=== PATIENT | male | born 1960 | race Caucasian/White ===

== ENCOUNTER 2018-04-03 11:41 | Outpatient (CLI) | payer BC, SELFPAY ==
[2018-04-03 12:05] LABS: Abs Immature Grans 0.01 k/cumm (0.0-0.09); Absolute Basophil Count 0.02 k/cumm (0.0-0.2); Absolute Eosinophil Count 0.26 k/cumm (0.0-0.7); Absolute Monocyte Count 0.53 k/cumm (0.11-0.7); Absolute Neutrophil Count 4.01 k/cumm (1.2-6.7); Basophils % 0.3; Eosinophils % 3.7; HCT 44.6 % (40.0-50.0); Immature Grans % 0.1; Lymphocytes % 31.3; Mean Corp. HGB Concentration 33.6 g/dL (32.0-36.0); Mean Corpuscular Hemoglobin 30.5 pg (27.0-33.0); Mean Corpuscular Volume 90.8 fL (80-95); Mean Platelet Volume 9.9 fL (8.0-11.0); Monocytes % 7.5; Neutrophils % 57.1; Platelet Count 249 x1000/uL (130-400); RBC 4.91 m/cumm (4.50-6.00); RBC Distribution Width 13.3 % (11.8-14.1); White Blood Cell Count 7.03 k/cumm (4.4-10.8)
[2018-04-03 13:12] LABS: ALT 20 U/L (12-78); AST 11 U/L (15-37); Albumin 3.9 g/dL (3.4-5.0); Alkaline Phosphatase 75 U/L (46-116); Anion Gap 9.3 mmol/L (3-11); BUN 22 mg/dL (7-18); Bilirubin, Total 0.6 mg/dL (0.2-1.0); CO2 22.7 mmol/L (21.0-32.0); CREATININE 1.17 mg/dL (0.70-1.30); Calcium 8.5 mg/dL (8.5-10.1); Chloride 106 mmol/L (98-107); Glucose 97 mg/dL (70-100); Potassium 4.4 mmol/L (3.5-5.1); Sodium 138 mmol/L (136-145); Total Protein 7.1 g/dL (6.4-8.2)
[2018-04-04 09:18] LABS: CEA 0.9 ng/ml
== END 2018-04-03 12:01 ==
PROVIDERS: PCP General Practice; Visit Provider Internal Medicine
DX: Z85.038 Personal history of other malignant neoplasm of large intestine (principal)
CPT/HCPCS: 36415; 80053; 82378; 85025

== ENCOUNTER 2019-04-24 13:43 | Outpatient (CLI) | payer BC, SELFPAY ==
[2019-04-24 14:03] LABS: Abs Immature Grans 0.03 k/cumm (0.0-0.09); HCT 44.6 % (40.0-50.0); Mean Corp. HGB Concentration 33.6 g/dL (32.0-36.0); Mean Corpuscular Volume 89.2 fL (80-95); Mean Platelet Volume 9.6 fL (8.0-11.0); Platelet Count 303 x1000/uL (130-400); RBC Distribution Width 13.2 % (11.8-14.1); White Blood Cell Count 9.27 k/cumm (4.4-10.8)
[2019-04-24 14:44] LABS: Absolute Lymphocyte Count 2.69 k/cumm (1.2-3.4); Absolute Monocyte Count 0.46 k/cumm (0.11-0.7); Absolute Neutrophil Count 5.75 k/cumm (1.2-6.7); Atypical Lymphocytes % 5
[2019-04-24 14:45] LABS: Absolute Eosinophil Count 0.37 k/cumm (0.0-0.7); Diff Comment Manual Differential; RBC Morphology Normal
[2019-04-24 15:29] LABS: ALT 22 U/L (16-63); AST 11 U/L (15-37); Alkaline Phosphatase 89 U/L (46-116); Anion Gap 9.5 mmol/L (3-11); BUN 17 mg/dL (7-18); Bilirubin, Total 0.4 mg/dL (0.2-1.0); CO2 24.5 mmol/L (21.0-32.0); CREATININE 1.16 mg/dL (0.70-1.30); Calcium 8.9 mg/dL (8.5-10.1); Chloride 104 mmol/L (98-107); Glucose 110 mg/dL (74-106); Potassium 4.3 mmol/L (3.5-5.1); Sodium 138 mmol/L (136-145); Total Protein 6.9 g/dL (6.4-8.2)
[2019-04-27 11:10] LABS: CEA 0.7 ng/mL (See Note)
== END 2019-04-24 14:03 ==
PROVIDERS: PCP General Practice; Visit Provider Nurse Practitioner Family
DX: C18.9 Malignant neoplasm of colon, unspecified (principal)
CPT/HCPCS: 36415; 80053; 82378; 85025

== ENCOUNTER 2019-07-20 08:36 | Day surgery (SDC) | payer BC, SELFPAY ==
--- NOTE | 2019-07-20 07:03 | W.COLOREPORT ---
Date of service: 07/20/19 Time of Service: : Colonoscopy Report Date of procedure: 07/20/19 Pre-op diagnosis general: Hx of colon Cancer and polyps Post-op diagnosis procedure note: same (polyps) Procedure: Colonoscopy with polypectomy Surgeon: Jenna Blanco Anesthesia proc note operative: other (General/ ASA 2/ Cande Ladd CRNA) Estimated blood loss (mL): 3 Pathology: other (ascending pllyp, sigmoid polyps x3, rectal polyps x2) Complications: None Disposition: same day Indications: 58 y/o male with history of colon cancer-adenocarcinoma (s/p colectomy in 2010) presents for colonoscopy screening pre-op. His last screening was in 2015, which was remarkable for a single hyperplastic polyp. He denies a family history of colon cancer. He denies any changes in bowel habits including bloody or black tarry stools, abdominal pain, diarrhea or constipation. He denies constitutional symptoms. Risks, benefits and complications have been reviewed. Complications include but are not limited to bleeding, pain, perforation, missed small lesion/polyp, sore throat, aspiration and adverse reaction to the medications. Questions were entertained and answered to their satisfaction and they wished to proceed. No guarantees were given or implied. Prep: Miralax/Dulcolax Procedure Start Time: : Procedure End Time: :40 Retraction Time: 15 minutes Findings: small sessile polyps patent anastamosis without stricture or polyps Procedure Description: After informed consent was obtained the patient was taken to the procedure room and placed in a left decubitous position. Monitors were applied and a time out was done. The patients name, date of , procedure, allergies to medications and metal in their body was reviewed. The patient was then sedated. Once sedated and comfortable a rectal exam was done. External exam was normal. Internal exam revealed a normal sphincter tone and no palpable masses. The prostate felt normal. The scope was then introduced and retro-flexed. No internal hemorrhoids masses or polyps were identified on retro-flexion. The scope was then advanced to the cecum without difficulty. The ileocecal valve and appendiceal orifice were identified. The prep was good. The scope was then slowly retracted over 15 minutes back into the rectum. Polyps were removed with cold forceps in the ascending colon, sigmoid colon and rectal polyps. The anastamosis was identified. It was wide open. There was no scqr tissue and no polyps or inflammation. The scope was removed and the patient was woken up and taken back to Same day surgery in stable condition. The patient tolerated the procedure well and there were no immediate complications. Follow up: The patient should follow up in 3-5 years unless they develop changes in bowel habits or other new gastrointestinal complaints.
--- NOTE | 2019-07-20 07:09 | W.PM.DSUDISC ---
Discharge Plan Disposition Patient Disposition: HOME Condition: Good Discharge Details Reason For Visit: Hx of colon Cancer Attending Provider: Jenna Blanco Primary Care Provider: None,None Home Meds and New Rx's Prescriptions: Discontinued polyethylene glycol 3350 17 gram/dose powder 238 g PO ONCE Qty: 238 RF: 0 bisacodyl [Dulcolax (bisacodyl)] 5 mg tablet,delayed release (DR/EC) 5 mg PO ONCE Qty: 4 RF: 0 Discharge Instructions Additional Instructions: Findings: 5 small polyps Follow up: 3-5 years Please call if you develop: fevers >101.5 Nausea or Vomiting Abdominal pain that is not transient DAY SURGERY UNIT POST ENDOSCOPY INSTRUCTIONS 1. Because there will be medication in your system for the next 24 hours, you may feel a little sleepy. Your coordination will be affected. Therefore: a. Do not drive or operate dangerous equipment for 24 hours. b. Do not drink alcohol beverages for 24 hours (not even beer). c. Plan to go home and rest for the day. 2. Generally there are no restrictions on your activity after a day or so has gone by, but you may feel a bit fatigued for a few days. 3 After you arrive home you may have a light meal and return to a normal diet as you can tolerate it without feeling sick to your stomach. 4. After surgery, you may feel pain or discomfort. This should be only transient, but if it persists please contact your doctor. 5. If there are any questions regarding the findings of your procedure, please feel free to contact your doctor. 6. If you are unable to contact your doctor with a problem, contact the hospital at [phone]. 7. Continue all your regular medications unless directed otherwise. I understand the above instructions and have no questions. Signature of Patient or Responsible Adult Escort Date/Time Name of Responsible Adult Escort Signature of Nurse Date/Time Activity:: Activity as Tolerated Diet:: As Tolerated Discharge Orders Discharge Orders: Discharge Order (Routine); Ordered 07/20/19 Ordered By: Jenna Blanco
[2019-07-20 08:52] VITALS: BP 128/79; PULSE 102; RESP 16; TEMP 37.1; O2SAT 96
[2019-07-20] MEDS: Lactated Ringers 1,000 ML 80 ML IV (09:13)
--- NOTE | 2019-07-20 09:22 | BOWEL_PTH ---
PATIENT: Alberto Yanes LOC: [facility] U#:[id number] AGE/SX: 58/M ROOM: RE07/20/[address]: Jenna Blanco MD : [id number] BED: DIS: 07/20/2019 SPEC #: [id number] RECD: 07/20/19 12:31 STATUS: ALHAJI REQ #: [id number] [place]: 07/20/19 09:[address]: Jenna Blanco DEPT: Surgical Specimen RECD BY: Shonna Kumar ENTERED: 07/20/19 12:33 SP TYPE: Bowel OTHR DR: None Tissues: 1 - BIOPSY BOWEL 2 - BIOPSY BOWEL 3 - BIOPSY BOWEL Procedures: GROSS AND MICRO LEVEL 4 Comments: [id number]
[2019-07-20 10:20] VITALS: BP 93/65; PULSE 66; RESP 14; TEMP 36.5; O2SAT 95
== END 2019-07-20 10:30 | disposition home or self-care (01) ==
LOC: SUR 08:36
PROVIDERS: Visit Provider Surgery
PROC: 0DJD8ZZ Inspection of Lower Intestinal Tract, Via Natural or Artificial Opening Endoscopic (ICD-10-PCS; CPT 45378; principal; 2019-07-20 10:30)
DX: Z12.11 Encounter for screening for malignant neoplasm of colon (principal); D12.2 Benign neoplasm of ascending colon; K63.5 Polyp of colon; K62.1 Rectal polyp; Z85.038 Personal history of other malignant neoplasm of large intestine; Z90.49 Acquired absence of other specified parts of digestive tract; Z87.19 Personal history of other diseases of the digestive system
CPT/HCPCS: 45380; 88305; J2001

== ENCOUNTER 2020-03-09 13:54 | Emergency (ER) | payer BC, SELFPAY ==
[2020-03-09 13:58] VITALS: BP 152/93; PULSE 78; RESP 16; TEMP 36.6; O2SAT 95
--- NOTE | 2020-03-09 14:15 | DI.CT_ITS ---
EXAM: CT ABDOMEN PELVIS W CLINICAL HISTORY: LLQ pain TECHNIQUE: Imaging Protocol: Axial computed tomography images with coronal and sagittal reformatted images were created and reviewed CONTRAST MATERIAL: Intravenous: Omnipaque 350 Contrast volume:100 mL Oral: No COMPARISON: CT CHEST ABD PELVIS WITH CONTRAST from 03/01/2016 FINDINGS: ABDOMEN: Lung Bases: Normal where visualized. Liver: Normal density. No measurable mass. Stable hepatic cysts. Portal, Superior Mesenteric, and Splenic Veins: Unremarkable. Gallbladder and Biliary Tract: Status post cholecystectomy. No biliary ductal dilatation. Pancreas: Normal density, no abnormal calcifications or inflammatory process. Spleen: Normal. Adrenals: No masses seen. Kidneys: Normal size, contour and axis. Stable nonobstructing left nephrolithiasis. No masses seen. Abdominal Aorta: Abdominal portion non-dilated. Mild atherosclerosis. Bowel: No obstruction or bowel wall thickening. No evidence of acute appendicitis. Anastomotic sutur es in the sigmoid colon. Peritoneal Cavity: No ascites, collection or mesenteric inflammatory response. Lymph Nodes: Within normal limits. Bones: Unremarkable. Soft Tissues: Small fat containing umbilical hernia. Small fat containing paraumbilical hernia. PELVIS: Bladder: Incompletely distended. No gross abnormalities. Reproductive Organs: Mildly enlarged prostate gland. Lymph Nodes: Within normal limits. Bones: Within normal limits. IMPRESSION: No acute abdominal or pelvic process. Findings were discussed with the emergency department on the date of the examination. RADIATION DOSE DELIVERED: 922.48mGy.cm Total DLP DATA REPOSITORY: All CT scans at this facility are submitted to the National Radiology Data Registry (NRDR) Dose Index Registry (DIR) with the [employer] (ACR). RADIATION OPTIMIZATION: All CT scans at this facility use at least one of these dose optimization te chniques: automated exposure control; mA and/or kV adjustment per patient size (includes targeted exa ms where dose is matched to clinical indication); or iterative reconstruction.
[2020-03-09 14:34] LABS: Abs Immature Grans 0.03 10^3/uL (0.0-0.06); Absolute Basophil Count 0.04 10^3/uL (0.0-0.2); Absolute Eosinophil Count 0.29 10^3/uL (0.0-0.7); Absolute Lymphocyte Count 2.79 10^3/uL (1.2-3.4); Absolute Monocyte Count 0.56 10^3/uL (0.1-0.8); Absolute Neutrophil Count 4.17 10^3/uL (1.2-6.7); Basophils % 0.5; Eosinophils % 3.7; HGB 15.2 g/dL (13.5-17.5); Immature Grans % 0.4; Lymphocytes % 35.4; MCH 29.6 pg (27.0-33.0); MCV 89.7 fL (80-95); MPV 9.8 fL (8.0-11.0); Monocytes % 7.1; Neutrophils % 52.9; Nucleated RBC 0 %; Platelet Count 278 10^3/uL (130-400); RBC 5.13 10^6/uL (4.36-5.78); RDW 12.6 % (11.8-14.1); RDW-SD 41.4 fL; WBC 7.88 10^3/uL (4.4-10.8)
--- NOTE | 2020-03-09 14:37 | ED.GENADUL_ITS ---
Discharge Plan Disposition Patient Disposition: HOME Condition: Stable Discharge Details Clinical Impression: Kidney stone on left side Primary Care Provider: None,None ED Provider: Fatmata Castro Home Meds and New Rx's Prescriptions: New ketorolac 10 mg tablet 10 mg PO TID PRN (Reason: pain) 5 Days Qty: 14 RF: 0 tamsulosin [Flomax] 0.4 mg capsule 0.4 mg PO QHS 7 Days Qty: 7 RF: 0 Discharge Instructions Instructions: Kidney Stones (ED) Additional Instructions: Follow up with primary care provider in 3-5 days. Return to ED sooner if any worsening or concerns. Increase oral fluids. Take medications as directed. Follow-up with urology in 1 to 2 weeks if no improvement. Strain all urine. Stand Alone Forms: Work Release Referrals: Luis Armando Wheat MD [ [facility] STAFF PHYSICIAN] - Discharge Data Discharge Date/Time-TO BE ENTERED AT DEPARTURE: 03/09/20 17:22 Medical Decision Making <FELIZ Dickey - Last Filed: 03/10/20 08:04> 59-year-old gentleman with history of colon cancer, status post colectomy, presenting for ongoing abdominal pain, left lower quadrant. Has been present for 2 years but worse over the past 2 weeks. Clinically he appears well, nontoxic. Abdomen is soft, nontender, normal bowel sounds. Denies any pain in his back, flank, hematuria or dysuria. Discussed our options at this time. Patient would prefer to have the blood work, urinalysis and CT imaging at this time as he does not have a primary care provider and feels as though his pain is worse and different than usual. Differential includes not excluded to colon mass, obstruction, diverticulitis, UTI, pyelonephritis, hydronephrosis, renal stone, etc. Laboratory values reveal 5-10 red blood cells in his urine otherwise his labs are unremarkable. We once again discussed our options. Clinically he does not present as a kidney stone although this cannot be excluded given his hematuria. We discussed pros and cons of obtaining CT imaging with and without contrast, he is comfortable obtaining CT imaging with contrast understanding that a very small stone can be missed with contrast. In the meantime he will be given 30 IV Toradol. At time of signout, CT imaging pending. I have placed the patient on the care management list to help expedite outpatient care. Medical Records Medical records reviewed: Yes I reviewed the patient's medical records. <Fatmata Castro - Last Filed: 03/09/20 16:59> Care signed out to me from outgoing provider FELIZ Banerjee please see his original HPI and physical exam. Pending CT exam results are noted below. EXAM: CT ABDOMEN PELVIS W CLINICAL HISTORY: LLQ pain TECHNIQUE: Imaging Protocol: Axial computed tomography images with coronal and sagittal reformatted images were created and reviewed CONTRAST MATERIAL: Intravenous: Omnipaque 350 Contrast volume:100 mL Oral: No COMPARISON: CT CHEST ABD PELVIS WITH CONTRAST from 03/01/2016 FINDINGS: ABDOMEN: Lung Bases: Normal where visualized. Liver: Normal density. No measurable mass. Stable hepatic cysts. Portal, Superior Mesenteric, and Splenic Veins: Unremarkable. Gallbladder and Biliary Tract: Status post cholecystectomy. No biliary ductal dilatation. Pancreas: Normal density, no abnormal calcifications or inflammatory process. Spleen: Normal. Adrenals: No masses seen. Kidneys: Normal size, contour and axis. Stable nonobstructing left nephrolithiasis. No masses seen. Abdominal Aorta: Abdominal portion non-dilated. Mild atherosclerosis. Bowel: No obstruction or bowel wall thickening. No evidence of acute appendicitis. Anastomotic sutures in the sigmoid colon. Peritoneal Cavity: No ascites, collection or mesenteric inflammatory response. Lymph Nodes: Within normal limits. Bones: Unremarkable. Soft Tissues: Small fat containing umbilical hernia. Small fat containing paraumbilical hernia. PELVIS: Bladder: Incompletely distended. No gross abnormalities. Reproductive Organs: Mildly enlarged prostate gland. Lymph Nodes: Within normal limits. Bones: Within normal limits. IMPRESSION: No acute abdominal or pelvic process. Findings were discussed with the emergency department on the date of the examination. CT shows left kidney stone nonobstructing. Normal saline 1 L ordered by Sarath prior to discharge. Plan is to discharge patient with instructions for kidney stone. Discussed CT results with patient, he has no complaints at this time. IV normal saline is infusing without difficulty. Discussed follow-up and home care, verbalized understanding. Hemodynamically stable alert and oriented at the time of this dictation. This text was generated using [employer] system, please disregard any oddities of phrase or misspellings. HPI <FELIZ Dickey - Last Filed: 03/10/20 08:04> General Mode of arrival: ambulatory . Date/Time Provider Initiated Documentation: 03/09/20 13:58 . Limitations to Documentation: no limitations . Information obtained by: patient . HPI Narrative: This is a 59-year-old male with history of tubular adenoma of colon, biliary dyskinesia, kidney stones. Status post cholecystectomy, and colectomy. He is presenting to the ER today complaining of abdominal pain, left lower quadrant has been present for approximately 2 years. He states typically it is a 4-6 of 10 but over the past 2 weeks it has been an 8-10 out of 10. Denies recent injury or illness. When he initially had this pain he states they felt as though it was his gallbladder and it was removed, pain never got better. He tells me he has had multiple colonoscopies, CTs, and has never been told why he has this pain. He denies fever, nausea, vomiting, chest pain, back pain, shortness of breath, dysuria, hematuria, diarrhea or constipation. Reports that he had a bowel movement 2-3 days ago and that is usual for him. He currently does not have a primary care doctor. He states the pain is typically always there but does come on more harshly and is stabbing when that happens. Denies any pain radiating into his groin, penis, testicles. Related Data Home Medications Medication Instructions Recorded Confirmed ketorolac 10 mg PO TID PRN 5 Days #14 tab 03/09/20 tamsulosin [Flomax] 0.4 mg PO QHS 7 Days #7 cap 03/09/20 Previous Rx's Medication Instructions Recorded ketorolac 10 mg PO TID PRN 5 Days #14 tab 03/09/20 tamsulosin [Flomax] 0.4 mg PO QHS 7 Days #7 cap 03/09/20 Allergies Allergy/AdvReac Type Severity Reaction Status Date / Time No Known Allergies Allergy Verified 03/09/20 14:02 General Stated Complaint: Abd Prob JEANNINE: 3 Review of Systems <FELIZ Dickey - Last Filed: 03/10/20 08:04> Constitutional Constitutional: Denies fever(s) and Denies headache(s) ENT Ears, Nose, Mouth, and Throat: Denies headache(s) Cardiovascular Cardiovascular: Denies chest pain and Denies dyspnea Respiratory Respiratory: Denies cough and Denies dyspnea Gastrointestinal Gastrointestinal: Reports abdominal pain, Denies nausea and Denies vomiting Genitourinary Genitourinary: Denies hematuria and Denies dysuria Musculoskeletal Musculoskeletal: Denies back pain Integumentary/Breasts Skin/Breast: Denies rash Neurologic Neurologic: Denies headache(s) PFSH <FELIZ Dickey - Last Filed: 03/10/20 08:04> Medical History Biliary dyskinesia H/O colon cancer, stage III 2011-s/p sigmoid colectomy, radiation and chemotherapy [id number] Hepatic flexure mass Kidney stones Surgical History Cholecystectomy (02/13/17) Colectomy (04/04/11) sigmoidectomy Colonoscopy - IV Sedation 2010, 2012, 2014, 2015 EGD - IV Sedation (06/12/16) History of colonoscopy (~07/2019) Social History Smoking/Tobacco Use Status: Current every day Tobacco Type: cigarettes Smoking packs per day: 1 Smoking cigarettes per day: 20.0 Tobacco: How many years used: 44 Smoking risk assessment performed?: Yes Alcohol Intake: never Drug use: Never Substance use type: does not use Do you feel safe at home: Yes Do you feel safe in your relationship?: Yes Exam <FELIZ Dickey - Last Filed: 03/10/20 08:04> Const General: cooperative, healthy appearing, comfortable and no acute distress Orientation: alert and awake HENMT Head: normal to inspection, normocephalic and atraumatic Mouth: moist mucous membranes Eyes Conjunctivae: conjunctivae normal Sclera: sclerae normal Neck Neck: normal visual inspection, full ROM, trachea midline and supple Resp Effort & Inspection: normal respiratory effort and able to speak in complete sentences Auscultation: clear to auscultation bilaterally Cardio Rate: regular rate Rhythm: regular rhythm GI Inspection: normal to inspection Palpation: soft, not firm, no guarding, no masses and nontender Auscultation: normal bowel sounds Back/Spine/Pelvis Back: No back tenderness Skin General skin exam: no rashes or lesions noted Neuro General: patient alert, patient awake, moves all extremities and no focal motor deficits Speech: speech normal Gait: normal gait Sensory Exam: no sensory deficits noted Psych Appearance: grossly normal Mental Status: mental status grossly normal Course <FELIZ Dickey - Last Filed: 03/10/20 08:04> Vital Signs Vital signs: Vital Signs Temperature 36.6 C 03/09/20 13:58 Pulse 78 03/09/20 13:58 Respiratory Rate 16 03/09/20 13:58 Blood Pressure 152/93 H 03/09/20 13:58 Pulse Oximetry 95 03/09/20 13:58 Temperature 36.6 C 03/09/20 13:58 Temperature Source Skin 03/09/20 13:58 Pulse 78 03/09/20 13:58 Respiratory Rate 16 03/09/20 13:58 Respiratory Effort 03/09/20 14:02 Blood Pressure 152/93 H 03/09/20 13:58 Blood Pressure Position Sitting 03/09/20 13:58 Pulse Oximetry 95 03/09/20 13:58 Oxygen Delivery Method Room Air 03/09/20 13:58 Oxygen Flow Rate 0 03/09/20 13:58 Pain Level 9 03/09/20 14:09 Comment 03/09/20 13:58 Lab/Test Results Lab/Test Results: Laboratory Tests Range/Units 03/09/20 14:20 WBC (4.4-10.8) 10^3/uL 7.88 RBC (4.36-5.78) 10^6/uL 5.13 Hgb (13.5-17.5) g/dL 15.2 Hct (40.0-50.0) % 46.0 MCV (80-95) fL 89.7 MCH (27.0-33.0) pg 29.6 MCHC (32.0-36.0) % 33.0 RDW (11.8-14.1) % 12.6 Plt Count (130-400) 10^3/uL 278 MPV (8.0-11.0) fL 9.8 Immature Gran % 0.4 Neutrophils % 52.9 Lymphocytes % 35.4 Monocytes % 7.1 Eosinophils % 3.7 Basophils % 0.5 Nucleated RBC % % 0 Absolute Neutrophils (1.2-6.7) 10^3/uL 4.17 Absolute Lymphocytes (1.2-3.4) 10^3/uL 2.79 Absolute Monocytes (0.1-0.8) 10^3/uL 0.56 Absolute Eosinophils (0.0-0.7) 10^3/uL 0.29 Absolute Basophils (0.0-0.2) 10^3/uL 0.04 Sign Out <FELIZ Dickey - Last Filed: 03/10/20 08:04> Sign Out Data: Sign Out Comment: Pending CT imaging Last updated by Sarath Elder PA at 03/09/20 15:30
[2020-03-09 14:38] LABS: Bilirubin Negative (Negative); Blood Small (Negative); Clarity Clear (Clear); Glucose Negative (Negative); Ketones Negative (Negative); Leukocyte Esterase Negative (Negative); Nitrite Negative (Negative); Specific Gravity >= 1.030 (1.005-1.025)
[2020-03-09 14:53] LABS: Bacteria Negative HPF (Negative); C & S Indicated? No; Casts Negative LPF (Negative); Crystals Negative HPF (Negative); Epithelial Cells Rare HPF (Negative); Mucus Moderate (Negative); WBC 0-2 HPF (0-5)
[2020-03-09 14:57] LABS: ALT 26 U/L (16-63); AST 15 U/L (15-37); Alkaline Phosphatase 83 U/L (46-116); BUN 14 mg/dL (7-18); Bilirubin, Total 0.7 mg/dL (0.2-1.0); CO2 24.7 mmol/L (21.0-32.0); CREATININE 1.13 mg/dL (0.70-1.30); Calcium 8.7 mg/dL (8.5-10.1); Glucose 95 mg/dL (74-106); Lipase 71 U/L (73-393); Total Protein 7.2 g/dL (6.4-8.2)
[2020-03-09 15:19] LABS: Anion Gap 8.3 mmol/L (3-11); Chloride 107 mmol/L (98-107); Potassium 4.3 mmol/L (3.5-5.1); Sodium 140 mmol/L (136-145)
--- NOTE | 2020-03-09 15:19 | NUR.NOTE ---
Nursing Note: Referral given to Care Management to establish care with a PCP. Beth Mancia
[2020-03-09] MEDS: Ketorolac 30 MG/ML VIAL IVP (15:22)
[2020-03-09] MEDS: Normal Saline Flush 10 ML SYR IVP ×2 (15:25→15:55)
[2020-03-09] MEDS: Normal Saline - Diluent 50 ML VIAL IV (15:55)
[2020-03-09] MEDS: Omnipaque 350 MG/ML 100 ML BTL IJ (15:55)
[2020-03-09 16:09] VITALS: BP 138/91; PULSE 67; O2SAT 97
[2020-03-09] MEDS: Normal Saline 1,000 ML 1000 ML IV (16:28)
--- NOTE | 2020-03-09 19:24 | PDOC.ERCMPRO ---
- If Service Date Differs Date of service: 03/09/20 Time of Service: 19:24 Care Management Progress Note Alberto is seen in the ED on 03/09/20 for a kidney stone on the left side. At the request of ED provider, PAULINA coordinates a referral to Alonso Park MD, on-call provider, of [facility], to assist Alberto in obtaining a follow-up appointment and in establishing care with a PCP. He has BCBS for insurance.
== END 2020-03-09 17:22 | disposition home or self-care (01) ==
PROVIDERS: Physician Assistant; Emergency Provider Registered Nurse Emergency
DX: N20.0 Calculus of kidney (principal); R10.32 Left lower quadrant pain; Z85.038 Personal history of other malignant neoplasm of large intestine; Z92.21 Personal history of antineoplastic chemotherapy
CPT/HCPCS: 36415; 80053; 83690; 96361; 96374; 99285; 74177; 81003; 81015; 85025; 99284; J1885; J3490

== ENCOUNTER → 2020-04-19 21:07 | Outpatient (CLI) | payer BC, SELFPAY ==
[2020-04-19 15:25] LABS: Abs Immature Grans 0.03 10^3/uL (0.0-0.06); Absolute Basophil Count 0.04 10^3/uL (0.0-0.2); Absolute Eosinophil Count 0.34 10^3/uL (0.0-0.7); Absolute Lymphocyte Count 2.79 10^3/uL (1.2-3.4); Absolute Monocyte Count 0.66 10^3/uL (0.1-0.8); Absolute Neutrophil Count 5.69 10^3/uL (1.2-6.7); Basophils % 0.4; Eosinophils % 3.6; HCT 45.1 % (40.0-50.0); HGB 14.9 g/dL (13.5-17.5); Immature Grans % 0.3; Lymphocytes % 29.2; MCH 29.6 pg (27.0-33.0); MCV 89.7 fL (80-95); MPV 10.1 fL (8.0-11.0); Monocytes % 6.9; Neutrophils % 59.6; Nucleated RBC 0 %; Platelet Count 268 10^3/uL (130-400); RBC 5.03 10^6/uL (4.36-5.78); RDW 12.6 % (11.8-14.1); RDW-SD 41.6 fL; WBC 9.55 10^3/uL (4.4-10.8)
[2020-04-19 16:08] LABS: ALT 33 U/L (16-63); AST 17 U/L (15-37); Alkaline Phosphatase 70 U/L (46-116); Anion Gap 12.5 mmol/L (3-11); BUN 24 mg/dL (7-18); Bilirubin, Total 0.7 mg/dL (0.2-1.0); CO2 22.5 mmol/L (21.0-32.0); Calcium 8.5 mg/dL (8.5-10.1); Chloride 106 mmol/L (98-107); Glucose 88 mg/dL (74-106); Potassium 4.3 mmol/L (3.5-5.1); Sodium 141 mmol/L (136-145); Total Protein 6.7 g/dL (6.4-8.2)
[2020-04-19 21:54] LABS: CEA 0.7 ng/mL (See Note)
== END ==
PROVIDERS: Visit Provider Internal Medicine
DX: Z85.038 Personal history of other malignant neoplasm of large intestine (principal)
CPT/HCPCS: 36415; 80053; 82378; 85025

== ENCOUNTER 2020-05-09 03:28 | Outpatient (CLI) | payer BC, SELFPAY ==
[2020-05-10 19:37] LABS: COVID-19 RT-PCR UVMMC Result Negative (Negative)
== END 2020-05-09 03:48 ==
PROVIDERS: Urology; PCP Nurse Practitioner Family; Visit Provider Nurse Practitioner Gerontology
DX: Z11.59 Encounter for screening for other viral diseases (principal); Z01.818 Encounter for other preprocedural examination
CPT/HCPCS: U0003

== ENCOUNTER 2020-05-12 07:08 | Day surgery (SDC) | payer BC, SELFPAY ==
[2020-05-12] VITALS (9 sets, daily range): BP systolic 81–136; BP diastolic 47–90; PULSE 56–85; RESP 11–18; TEMP 36.4–36.6; O2SAT 93–98
--- NOTE | 2020-05-12 07:30 | W.PM.HP.N ---
Date of service: 05/12/20 Time of Service: 08:30 Assessment and Plan Assessment and plan (1) Kidney stones: Status: None Assessment and plan: He has elected to have his stone treated ureteroscopically (Rather than percutaneous nephrolithotomy or ESWL). Given the size of the stone, we will likely need a staged procedure. History of Present Illness History of Present Illness Chief Complaint: Kidney stone Narrative: Constantino is a 59-year-old male referred to urology by the emergency room for left-sided flank pain related to kidney stones. Patient notes that he has had this discomfort over the past 2 years more noticeable with eating. He has not seen gross hematuria. He has no change in his frequency, urgency, or stream. He has no dysuria. He states he has no history of prior kidney stones. He has no history of gout or parathyroidism. He notes his current discomfort is a 4 out of 10. He does not take any medication for the discomfort. In reviewing his prior CT scans, he has had evidence of his left renal stone for over 5 years. The stone has been in different locations within the left kidney and has increased in size. Review of Systems Narrative: No fevers or chills No vision change or dysphasia No diabetes or thyroid dysfunction No shortness of breath, cough or hemoptysis No chest pain or palpitations No nausea, vomiting, hepatitis, ulcers, jaundice No seizures, strokes or peripheral neuropathy No bleeding disorders or anemia No gout PFSH Medical History Biliary dyskinesia H/O colon cancer, stage III 2011-s/p sigmoid colectomy, radiation and chemotherapy [id number] Hepatic flexure mass Kidney stones Surgical History Cholecystectomy (02/13/17) Colectomy (04/04/11) sigmoidectomy Colonoscopy - IV Sedation 2010, 2012, 2014, 2016 EGD - IV Sedation (06/12/16) History of colonoscopy (~07/2019) Family History (Updated 05/11/20 @ 15:22 by Meghan Ruiz) Mother , 81 Cancer Father , 83 Heart disease Sister No problems noted. Brother , 59 Alcohol abuse Daughter No problems noted. Daughter No problems noted. Social History (Updated 05/11/20 @ 15:17 by Meghan Ruiz) Smoking/Tobacco Use Status: Current every day Tobacco Type: cigarettes Smoking packs per day: 1 Smoking cigarettes per day: 20.0 Tobacco: How many years used: 44 Quit status: considering quitting Second Hand Exposure: Yes Smoking risk assessment performed?: Yes Alcohol Intake: former Drug use: Never Substance use type: does not use Caregiver/Support person: No Household members: significant other Housing: house Communication Needs: None Do you need help understanding health information?: Never Pets and animals: Yes (4 dogs) Pets and animals: dog(s) Sexually active: Yes Do you think of yourself as: straight/heterosexual Current gender identity: male What is your relationship status?: living with partner How often do you talk on the phone with friends or family?: twice per week How often do you get together with friends or relatives?: once per week How often do you attend samaritan or evangelical services?: decline to answer Do you belong to any clubs or organized social groups?: no Panel score (0-1 are the most socially isolated patients): 2 What type of physical activity do you participate in: none Allyssa/Confucianism: None Seatbelt use: always Helmet use: No Drive intox or ride w/intox concrete mixing truck driver: No Do you feel safe at home: Yes Do you feel safe in your relationship?: Yes Victim of physical abuse: No Victim of emotional abuse: No Victim of sexual abuse: No Would you like helpful sources: No Meds Home Medications and Allergies Home Medications Medication Instructions Recorded Confirmed Type Unknown [No Known Home Meds] 04/28/20 05/12/20 History Allergies Allergy/AdvReac Type Severity Reaction Status Date / Time No Known Allergies Allergy Verified 05/12/20 07:17 Exam Const General: cooperative, comfortable and no acute distress Neck Neck: supple Resp Effort & Inspection: normal respiratory effort Auscultation: clear to auscultation bilaterally Cardio Rate: regular rate Rhythm: regular rhythm GI Palpation: soft and no masses Neuro General: patient alert, patient awake and patient oriented x3 Results Last Vital Signs Temp 36.6 C 05/12/20 07:18 Pulse 85 05/12/20 07:18 Resp 16 05/12/20 07:18 BP 136/90 05/12/20 07:18 Pulse Ox 96 05/12/20 07:18 COVID-19 Screening Have you, or household traveled for leisure in last 14 days?: No Had IN PERSON contact w/suspected or confirmed C-19 person: No
[2020-05-12] MEDS: Lactated Ringers 1,000 ML 80 ML IV (07:55)
[2020-05-12] MEDS: ceFAZolin 2 GM/50 ML BAG IVPB (10:05)
[2020-05-12] MEDS: Lidocaine 2% Jelly 6 ML SYR (10:20)
[2020-05-12] MEDS: Omnipaque 300 MG/ML 50 ML BTL (10:54)
--- NOTE | 2020-05-12 12:10 | DI.RAD_ITS ---
EXAM: XR RETROGRADE IN OR CLINICAL HISTORY: Stone, retrograde in OR. TECHNIQUE: 2D and realtime digital imaging was performed. CONTRAST MATERIAL: . COMPARISON: None FINDINGS: Fluoroscopy was provided during urologic procedure placement of left ureteral stent over wire. Total fluoroscopy time 31.2 seconds Cumulative dose 11.0mGy IMPRESSION:
--- NOTE | 2020-05-12 12:18 | W.PM.DSUDISC ---
Discharge Plan Disposition Patient Disposition: HOME Condition: Stable Discharge Details Reason For Visit: Left kidney stone Attending Provider: Luis Armando Wheat Primary Care Provider: Moi Arringtno Home Meds and New Rx's Prescriptions: New oxycodone 5 mg tablet 5 - 10 mg PO Q6H PRN (Reason: pain) Qty: 30 RF: 0 ketorolac 10 mg tablet 10 mg PO TID PRN5 Days Qty: 15 RF: 0 Discharge Instructions Additional Instructions: Keep Covid testing and surgery appointments as previously scheduled No need to strain urine Activity:: Activity as Tolerated Shower/Bathe:: 24 hours Diet:: As Tolerated Discharge Orders Discharge Orders: Discharge Order (Routine); Ordered 05/12/20 Ordered By: Luis Armando Wheat DS: Diagnosis Discharge Diagnosis (1) Kidney stones: Status: None
--- NOTE | 2020-05-12 12:26 | ROE_ITS ---
Date of service: 05/12/20 Time of Service: 12:26 Operative Note Operative Note DATE OF PROCEDURE: 05/12/20 PRE-OP DIAGNOSIS: Left kidney stone POST-OP DIAGNOSIS: same PROCEDURE: Cystoscopy, left retrograde pyelogram, left flexible ureteroscopy, holmium laser lithotripsy of renal stone, extraction of stone fragments, insert left ureteral stent SURGEON: Luis Armando Wheat ANESTHESIA: other (General) ESTIMATED BLOOD LOSS: 20 PATHOLOGY: other (stone for chemical analysis) Patient was transported to: PACU Patient's condition: stable Implants: 7 [place] by 22 to 30 cm ureteral stent Indications: This is a gentleman who has been identified as having a 1.5 cm stone in the left kidney. He is having pain. After discussion of multiple treatment options including nephrolithotomy and ESWL patient elected to move forward with ureteroscopic treatment using a holmium laser. Findings: Large stone in left upper pole calyx Procedure Description: The patient was brought to the operating room on 05/12/2020. After successful induction of general anesthesia, he was placed in the dorsal lithotomy position. Genitalia is prepped and draped. He was given a dose of preoperative IV antibiotic. 2% Xylocaine jelly was instilled for local anesthetic. A 22 [place] rigid cystoscope was passed through the urethra into the bladder. Urethra and bladder were inspected with a 30 degree lens. The pendulous, bulbous membranous urethra was all appeared normal with no stri ctures. The prostatic urethra showed some mild lateral lobe enlargement but no significant median lobe. The bladder neck was entered and the bladder mucosa was inspected. Both ureteral orifice ease were visualized no blood was seen coming from either side neck papillary or nodular lesion within the bladder. We cannulated the left ureteral orifice using a 6 [place] access catheter. Retrograde pyelogram was then performed by injecting Omnipaque through the access catheter with fluoroscopic guidance. A retrograde film demonstrated a filling defect in the upper pole. I then passed a guidewire through the access catheter and remove the catheter. We placed a dual-lumen catheter over the wire and a second wire was positioned. We chose one of the wires as a working wire as a safety wire. A ureteral access sheath was passed over the working wire leaving the safety wire in place. The flexible ureteroscope was introduced through the access sheath and the scope was advanced up the ureter into the collecting system. When negotiated the scope in the upper pole calyx a large irregularly shaped stone was identified We then used a 272 ?m holmium laser fiber to fragment the stone into multiple pieces. We used a power setting of 800 and a rate of 8. It took quite a bit of energy to fragment the stone. At completion of the procedure, multiple fragments were seen. We grasped several of these ZeroTip stone basket and remove. These fragments were sent to pathology for permanent section. There was still a large number of fragments remaining. We elected to place a ureteral stent to allow the kidney to feel in her visibility to improve. We have already planned to treat the stone in a staged procedure. We removed the excess 7 [place] variable stent over the safety wire. The stent was positioned with the proximal end curled in the upper pole calyx and distal within the bladder. Patient tolerated this procedure well with no complications. He already has a planned return to the operating room to remove any residual stone fragments.
[2020-05-24 16:10] LABS: Source: Left Kidney
== END 2020-05-12 14:27 | disposition home or self-care (01) ==
PROVIDERS: PCP Nurse Practitioner Family; Visit Provider Urology
PROC: (CPT 52356; principal; 2020-05-12 09:15)
DX: N20.0 Calculus of kidney (principal)
CPT/HCPCS: 52356; NC; 74420; 82365; J0131; J0690; J1100; J1885; J2001; J2370; J2405; Q9967

== ENCOUNTER 2020-05-23 02:04 | Outpatient (CLI) | payer BC, SELFPAY ==
[2020-05-24 12:36] LABS: COVID-19 RT-PCR UVMMC Result Negative (Negative)
== END 2020-05-23 02:24 ==
PROVIDERS: PCP Nurse Practitioner Family; Visit Provider Urology
DX: Z11.52 Encounter for screening for COVID-19 (principal); Z01.818 Encounter for other preprocedural examination
CPT/HCPCS: U0003

== ENCOUNTER 2020-05-26 06:07 | Day surgery (SDC) | payer BC, SELFPAY ==
[2020-05-26] VITALS (10 sets, daily range): BP systolic 96–126; BP diastolic 64–81; PULSE 66–88; RESP 10–25; TEMP 35.8–37.2; O2SAT 94–99
[2020-05-26] MEDS: Lactated Ringers 1,000 ML 80 ML IV (06:34)
--- NOTE | 2020-05-26 06:57 | W.PM.HP.N ---
Date of service: 05/26/20 Time of Service: 06:57 Assessment and Plan Assessment and plan (1) Kidney stones: Status: None Assessment and plan: He presents for the second of his staged procedures. We will remove his ureteral stent and run the flexible ureteroscope back up into the kidney. Based on my last operative note, there are still a large number of stone fragments in the kidney. Hopefully, we will not require further fragmentation of the stones, but we will be able to extract each of the stone fragments individually. History of Present Illness History of Present Illness Chief Complaint: Left renal stone Narrative: This is a 59-year-old gentleman who was identified as having a very large left renal stone. After treatment options were discussed, he elected to move forward with a staged ureteroscopic approach. He is already undergone the first stage whereby we did ureteroscopy and fragmented the stone with a holmium laser. He presents for the second stage where we will run the flexible ureteroscope back up to the kidney and extract any residual stone fragments. He has had blood in his urine and stent discomfort since his initial procedure. He has not had any fevers or chills. Review of Systems Narrative: No fevers or chills No vision change or dysphasia No diabetes or thyroid dysfunction No shortness of breath, cough or hemoptysis No chest pain or palpitations No nausea, vomiting, hepatitis, ulcers, jaundice No seizures, strokes or peripheral neuropathy No bleeding disorders or anemia No gout [facility] Medical History Biliary dyskinesia H/O colon cancer, stage III 2011-s/p sigmoid colectomy, radiation and chemotherapy [id number] Hepatic flexure mass Kidney stones Surgical History (Updated 05/26/20 @ 06:27 by Chaya Humphrey RN) Cholecystectomy (02/13/17) Colectomy (04/04/11) sigmoidectomy Colonoscopy - IV Sedation 2010, 2012, 2014, 2016 EGD - IV Sedation (06/12/16) History of cataract surgery bilat History of colonoscopy (~07/2019) Family History Mother , 81 Cancer Father , 83 Heart disease Sister No problems noted. Brother , 59 Alcohol abuse Daughter No problems noted. Daughter No problems noted. Social History (Updated 05/11/20 @ 15:17 by Meghan Arrington Smoking/Tobacco Use Status: Current every day Tobacco Type: cigarettes Smoking packs per day: 1 Smoking cigarettes per day: 20.0 Tobacco: How many years used: 44 Quit status: considering quitting Second Hand Exposure: Yes Smoking risk assessment performed?: Yes Alcohol Intake: former Drug use: Never Substance use type: does not use Caregiver/Support person: No Household members: significant other Housing: house Communication Needs: None Do you need help understanding health information?: Never Pets and animals: Yes (4 dogs) Pets and animals: dog(s) Sexually active: Yes Do you think of yourself as: straight/heterosexual Current gender identity: male What is your relationship status?: living with partner How often do you talk on the phone with friends or family?: twice per week How often do you get together with friends or relatives?: once per week How often do you attend anabaptist or buddhism services?: decline to answer Do you belong to any clubs or organized social groups?: no Panel score (0-1 are the most socially isolated patients): 2 What type of physical activity do you participate in: none Allyssa/Rastafari: None Seatbelt use: always Helmet use: No Drive intox or ride w/intox local city driver: No Do you feel safe at home: Yes Do you feel safe in your relationship?: Yes Victim of physical abuse: No Victim of emotional abuse: No Victim of sexual abuse: No Would you like helpful sources: No Meds Home Medications and Allergies Allergies Allergy/AdvReac Type Severity Reaction Status Date / Time No Known Allergies Allergy Verified 05/25/20 08:52 Exam Const General: cooperative and no acute distress Neck Neck: supple Resp Effort & Inspection: normal respiratory effort Auscultation: clear to auscultation bilaterally GI Palpation: soft and no masses Neuro General: patient alert, patient awake and patient oriented x3 Results Last Vital Signs Temp 37.2 C 05/26/20 06:13 Pulse 88 05/26/20 06:13 Resp 20 05/26/20 06:13 BP 117/81 05/26/20 06:13 Pulse Ox 96 05/26/20 06:13 COVID-19 Screening Have you, or household traveled for leisure in last 14 days?: No Had IN PERSON contact w/suspected or confirmed C-19 person: No
[2020-05-26] MEDS: ceFAZolin 1 GM/50 ML BAG IVPB (07:40)
[2020-05-26] MEDS: Lidocaine 2% Jelly 6 ML SYR (08:02)
[2020-05-26] MEDS: Omnipaque 300 MG/ML 50 ML BTL (09:02)
--- NOTE | 2020-05-26 09:12 | W.PM.DSUDISC ---
Discharge Plan Disposition Patient Disposition: HOME Condition: Stable Discharge Details Reason For Visit: left renal stone Attending Provider: Luis Armando Wheat Primary Care Provider: Moi Arrington Home Meds and New Rx's Prescriptions: New ketorolac 10 mg tablet 10 mg PO TID PRN (Reason: pain) 5 Days Qty: 15 RF: 0 Discharge Instructions Additional Instructions: Followup early next week for stent removal - tell office staff that pt has string on stent Followup appt with provider in 4 to 6 weeks with renal US no need to strain urine Activity:: Activity as Tolerated Shower/Bathe:: 24 hours Diet:: As Tolerated Discharge Orders Discharge Orders: Discharge Order (Routine); Ordered 05/26/20 Ordered By: Luis Armando Whaet DS: Diagnosis Discharge Diagnosis (1) Kidney stones: Status: None
--- NOTE | 2020-05-26 09:42 | DI.RAD_ITS ---
EXAM: XR RETROGRADE IN OR CLINICAL HISTORY: kidney stone TECHNIQUE: 2D and realtime digital imaging was performed. CONTRAST MATERIAL: Refer to procedure report. COMPARISON: No exams were available for comparison FINDINGS: Fluoroscopy was provided for Dr. Wheat during the performance of a retrograde evaluation of the matty l collecting system. Please refer to the procedure report for complete details. Fluoro time: 41 seconds IMPRESSION: RADIATION DOSE DELIVERED:
[2020-05-26] MEDS: fentaNYL 100 MCG/2 ML VIAL IVP (09:43)
--- NOTE | 2020-05-26 09:47 | ROE_ITS ---
Date of service: 05/26/20 Time of Service: 09:47 Operative Note Operative Note DATE OF PROCEDURE: 05/26/20 PRE-OP DIAGNOSIS: Left kidney stone POST-OP DIAGNOSIS: same PROCEDURE: Cystoscopy, remove left ureteral stent, left retrograde pyelogram, left flexible ureteroscopy with extraction of multiple stone fragments, insert left ureteral stent SURGEON: Luis Armando Wheat ANESTHESIA: other (General by LMA) ESTIMATED BLOOD LOSS: 58 PATHOLOGY: other (Stone fragments for chemical analysis) COMPLICATIONS: None Patient was transported to: PACU Patient's condition: stable Implants: 4.8 Citizen Of [place] by 22 to 30 cm left ureteral stent Indications: This is a 59-year-old gentleman who had a finding of a 1.5 cm left upper pole kidney stone. After discussing multiple treatment options, he agreed to a staged ureteroscopic procedure. He successfully completed the first stage during which we did ureteroscopy and holmium laser lithotripsy of the large stone. He presents now for repeat ureteroscopy with evacuation of stone fragments. Findings: Multiple stone fragments in left upper pole calyx Procedure Description: The patient was brought to the operating room on 05/26/2020. After successful induction of general anesthesia, he was placed in the dorsal lithotomy position. He was given a dose of IV antibiotics. His genitalia was prepped and draped. 2% Xylocaine jelly was instilled into the urethra to act as a local anesthetic. A 22 Citizen [place] rigid cystoscope was then passed through the urethra into the bladder. The urethra and bladder were inspected with a 30 degree lens. The pendulous, bulbous and membranous urethra was appeared normal with no strictures. The prostatic urethra showed some mild lateral lobe enlargement but no significant median lobe. The bladder neck was entered and the bladder mucosa was inspected. The ureteral stent could be seen protruding from the left ureteral orifice. The stent was grasped in an alligator forceps and the stent was withdrawn to the level of the urethral meatus. A Glidewire was advanced through the lumen of the stent and the stent was removed. A dual-lumen catheter was advanced over the wire. Retrograde pyelogram was obtained by injecting Omnipaque through the second port of the dual lumen catheter. This allowed us to outline the calyces. I then passed a second wire through the dual-lumen catheter and the catheter was removed. We chose one of the wires as a working wire and the other is a safety wire. We passed a ureteral access sheath over the working wire and positioned the sheath such that the tip was in the proximal end of the ureter. I then passed the flexible ureteroscope through the access sheath and inspected the calyces. Multiple stone fragments remained in the left upper pole calyx. These were grasped in a ZeroTip stone basket and removed. Stone fragments were sent to pathology for permanent section. Multiple very small stone fragments remained. None of these were larger than the diameter of our safety wire. With no significant large stone burden remaining, we elected to stop the procedure and place a ureteral stent. I chose a 4.8 Citizen [place] variable length stent that I advanced over the working wire. I positioned the proximal end of the stent into the left upper pole calyx and the distal end in the bladder. We left the safety string in place and brought the string through the urethra. The string was then coiled and taped onto the dorsum of the patient's penis. We will plan on removing the stent early next week. The patient tolerated this procedure well with no complications.
[2020-05-26] MEDS: Phenazopyridine 200 MG TAB PO (09:48)
[2020-06-03 16:54] LABS: Source: Left Kidney
== END 2020-05-26 11:44 | disposition home or self-care (01) ==
PROVIDERS: PCP Nurse Practitioner Family; Visit Provider Urology
PROC: (CPT 52352; principal; 2020-05-26 07:30)
DX: N20.0 Calculus of kidney (principal); Z96.0 Presence of urogenital implants
CPT/HCPCS: 52352; 52332; NC; 74420; 82365; J0690; J1100; J1885; J2001; J2405; J2704; J3010; Q9967

== ENCOUNTER 2021-05-10 04:04 | Outpatient (CLI) | payer BC, SELFPAY ==
[2021-05-10 13:12] LABS: Abs Immature Grans 0.02 10^3/uL (0.0-0.06); Absolute Basophil Count 0.04 10^3/uL (0.0-0.2); Absolute Eosinophil Count 0.32 10^3/uL (0.0-0.7); Absolute Lymphocyte Count 2.59 10^3/uL (1.2-3.4); Absolute Monocyte Count 0.55 10^3/uL (0.1-0.8); Absolute Neutrophil Count 5.51 10^3/uL (1.2-6.7); Basophils % 0.4; Eosinophils % 3.5; HCT 43.7 % (40.0-50.0); HGB 14.5 g/dL (13.5-17.5); Immature Grans % 0.2; Lymphocytes % 28.7; MCHC 33.2 % (32.0-36.0); MCV 90.5 fL (80-95); MPV 9.7 fL (8.0-11.0); Monocytes % 6.1; Neutrophils % 61.1; Nucleated RBC 0 %; Platelet Count 263 10^3/uL (130-400); RBC 4.83 10^6/uL (4.36-5.78); RDW 12.8 % (11.8-14.1); RDW-SD 42.2 fL; WBC 9.03 10^3/uL (4.4-10.8)
[2021-05-10 13:24] LABS: ALT 23 U/L (16-63); AST 9 U/L (15-37); Albumin 3.9 g/dL (3.4-5.0); Alkaline Phosphatase 82 U/L (46-116); Anion Gap 10.4 mmol/L (3-11); BUN 21 mg/dL (7-18); Bilirubin, Total 0.6 mg/dL (0.2-1.0); CO2 24.6 mmol/L (21.0-32.0); CREATININE 1.3 mg/dL (0.70-1.30); Calcium 8.4 mg/dL (8.5-10.1); Chloride 106 mmol/L (98-107); Glucose 142 mg/dL (74-106); Potassium 3.7 mmol/L (3.5-5.1); Sodium 141 mmol/L (136-145); Total Protein 7.2 g/dL (6.4-8.2)
[2021-05-10 23:20] LABS: CEA 1.4 ng/mL (See Note)
== END 2021-05-10 04:05 | disposition home or self-care (01) ==
LOC: LBO 04:04
PROVIDERS: PCP Nurse Practitioner Family; Visit Provider Nurse Practitioner Adult Health
DX: Z85.038 Personal history of other malignant neoplasm of large intestine (principal)
CPT/HCPCS: 36415; 80053; 82378; 85025

== ENCOUNTER 2022-06-05 03:11 | Outpatient (CLI) | payer BC, SELFPAY ==
[2022-06-05 08:39] LABS: Abs Immature Grans 0.03 10^3/uL (0.0-0.06); Absolute Basophil Count 0.04 10^3/uL (0.0-0.2); Absolute Lymphocyte Count 2.64 10^3/uL (1.2-3.4); Absolute Monocyte Count 0.48 10^3/uL (0.1-0.8); Absolute Neutrophil Count 4.99 10^3/uL (1.2-6.7); Basophils % 0.5; Eosinophils % 3.5; HGB 15.1 g/dL (13.5-17.5); Immature Grans % 0.4; Lymphocytes % 31.1; MCH 29.9 pg (27.0-33.0); MCHC 32.8 % (32.0-36.0); MCV 91 fL (80-95); MPV 9.6 fL (8.0-11.0); Monocytes % 5.7; Neutrophils % 58.8; Platelet Count 277 10^3/uL (130-400); RBC 5.05 10^6/uL (4.36-5.78); RDW 13.2 % (11.8-14.1); RDW-SD 44.6 fL; WBC 8.48 10^3/uL (4.4-10.8)
[2022-06-05 08:55] LABS: ALT 21 U/L (16-63); AST 14 U/L (15-37); Albumin 3.9 g/dL (3.4-5.0); Alkaline Phosphatase 94 U/L (46-116); Anion Gap 10.3 mmol/L (3-11); BUN 12 mg/dL (7-18); Bilirubin, Total 0.5 mg/dL (0.2-1.0); CO2 21.7 mmol/L (21.0-32.0); CREATININE 1.2 mg/dL (0.70-1.30); Calcium 8.8 mg/dL (8.5-10.1); Chloride 106 mmol/L (98-107); Estimated GFR 69.23 (mL/min/1.73m2); Glucose 117 mg/dL (74-106); Hemoglobin A1C 5.3 % (<5.7); Potassium 3.9 mmol/L (3.5-5.1); Sodium 138 mmol/L (136-145)
[2022-06-05 08:57] LABS: Calculated LDL 101 mg/dL (<100); Cholesterol 167 mg/dL (<200); HDL Cholesterol 41 mg/dL (40-60); Triglyceride 127 mg/dL (<150)
[2022-06-05 18:37] LABS: CEA 1.3 ng/mL (See Note)
== END 2022-06-05 03:12 | disposition home or self-care (01) ==
PROVIDERS: Internal Medicine; PCP Nurse Practitioner Family; Visit Provider Nurse Practitioner Adult Health
DX: Z13.1 Encounter for screening for diabetes mellitus (principal); Z13.220 Encounter for screening for lipoid disorders; Z85.038 Personal history of other malignant neoplasm of large intestine
CPT/HCPCS: 36415; 80053; 80061; 82378; 83036; 85025

== ENCOUNTER 2022-07-17 00:53 | Outpatient (CLI) | payer BC, SELFPAY ==
--- NOTE | 2022-07-17 08:03 | DI.RAD_ITS ---
Exam(s) XR ABDOMEN FLAT PLATE EXAM: 2D digital imaging was performed. CLINICAL HISTORY: monitoring left renal stone,h/o renal calculi, z87.442. COMPARISON: No exams were available for comparison TECHNIQUE: Supine views of the abdomen performed. FINDINGS: The visualized portions of the lung bases are clear. The heart size is normal. There is no evidence of organomegaly. Surgical clips are noted in the right upper quadrant. There is a large quantity o f stool throughout the colon. Anastomotic sutures are seen in the low pelvis. There is no abnormal colonic or small bowel dilatation. No gastric distension. IMPRESSION: 1. Nonobstructive bowel gas pattern. Large quantity of stool. DATA REPOSITORY: RADIATION DOSE DELIVERED:
== END 2022-07-17 01:13 ==
PROVIDERS: PCP Nurse Practitioner Family; Visit Provider Nurse Practitioner Gerontology
DX: K59.09 Other constipation (principal); Z87.442 Personal history of urinary calculi; Z98.890 Other specified postprocedural states
CPT/HCPCS: 74018

== ENCOUNTER 2022-07-23 06:49 | Day surgery (SDC) | payer BC, SELFPAY ==
--- NOTE | 2022-07-22 17:13 | W.ANESPRE ---
General Info Date of Service Date Performed: 07/23/22 Height: 6 ft Weight: 97.125 kg Body Mass Index (BMI): 29.0 Surgical Procedure: Operation Date: 07/23/22 08:20 Proposed Procedure Side Surgeon p Colonoscopy Chris Banuelos MD Meds Allergies and Home Medications Allergies Allergy/AdvReac Type Severity Reaction Status Date / Time No Known Allergies Allergy Verified 07/23/22 07:47 Current Visit Medications: Current Medications Generic Name Dose Route Start Last Admin Trade Name Freshaun PRN Reason Stop Dose Admin Ringer's Solution 1,000 mls @ 80 mls/hr 07/23/22 06:00 IV 08/19/22 23:59 INFUSION EZEQUIEL IV Miscellaneous Supplies 1 each 07/23/22 06:00 Iv Access IV 08/19/22 23:59 DIRECTED EZEQUIEL Sodium Chloride 0 ml 07/23/22 06:00 Normal Saline Flush 10 Ml Syr IV 08/19/22 23:59 PRN PRN Sodium Chloride 0 ml 07/23/22 06:00 Normal Saline 10 Ml Vial IJ 08/19/22 23:59 DIRECTED PRN Sterile Water 0 ml 07/23/22 06:00 Water,Injection,Sterile 10 Ml Vial IJ 08/19/22 23:59 DIRECTED PRN PFSH Active Problems Active Problems: Problem Status Onset Code Personal history of colon cancer Z85.038 Tubular adenoma of colon D12.6 Medical History Medical History Biliary dyskinesia H/O colon cancer, stage III 2011-s/p sigmoid colectomy, radiation and chemotherapy [id number] Hepatic flexure mass Surgical History Surgical History Cholecystectomy (02/13/17) Colectomy (04/04/11) sigmoidectomy Colonoscopy - IV Sedation 2010, 2012, 2014, 2016 EGD - IV Sedation (06/12/16) History of cataract surgery bilat History of colonoscopy (~07/2019) Tobacco Smoking/Tobacco Use Status: Current every day Tobacco Type: cigarettes Smoking packs per day: 1 Smoking cigarettes per day: 20.0 Passive smoking exposure: Yes Second hand exposure: Yes Alcohol Alcohol Intake: former Substance Use Substance use: Never Substance use type: does not use Vital Signs and Lab Results Vital Signs Most Recent Vital Signs in EMR: Temp Pulse Resp BP Pulse Ox 37.0 C 84 16 144/94 H 98 07/23/22 07:01 07/23/22 07:01 07/23/22 07:01 07/23/22 07:01 07/23/22 07:01 Lab Results Blood Type / Crossmatch: No Data to Display Complete Blood Count: No Data to Display Complete Metabolic Panel: No Data to Display Liver Function Panel: No Data to Display Coagulation Panel: No Data to Display Cardiac Panel: No Data to Display Arterial Blood Gas: No Data to Display Venous Blood Gas: No Data to Display Pancreas Panel: No Data to Display Thyroid Panel: No Data to Display Infectious Disease: No Data to Display Blood Cultures: No Data to Display Toxicology Panel: No Data to Display Anesthesia Assessment and Plan Anesthesia History Personal History: No History of Anesthesia Complications Family History: No Family History of Anesthesia Complications Exercise Tolerance Exercise Tolerance: Metabolic Equivalents>4 Cardiac & Pulmonary Exam Cardiac Exam: Normal S1/S2 Heart Sounds Pulmonary Exam: Clear Bilateral Breath Sounds Implantable Cardiac Device Does patient have a Pacemaker or an ICD?: No Airway Exam Known Difficult Airway: No Mallampati Class: 2 Mouth Opening: Normal (> 3cm) Thyromental Distance: Greater than 3 cm Neck Range of Motion: Full ROM Neck Circumference: Normal Teeth Condition: Normal Dentition ASA Classification ASA Score: ASA 2 Emergency Case?: No NPO Status NPO Status: NPO Clears >2 hours, Solids >8 hours Anesthesia Plan Resuscitation Status: Full Code Anesthesia Technique: General Anesthesia Airway Planned: Natural Airway Monitors Used: Standard Monitors Preoperative Comments:: 61 yo male with history of tubular adenoma/colon CA for colo. Sig PMHx: colon CA s/p resection, daily smoker, former EtOH, Previous Anes: no issues. - lap leny, DL with grade 3, glide grade unknown but difficulty passing ETT, 3 attempts, easy mask. - colo, prop, natural airway. - cysto, LMA 4 x 2.
--- NOTE | 2022-07-22 20:11 | W.PM.DSUDISC ---
Date of service: 07/23/22 Time of Service: 08:16 Discharge Plan Disposition Patient Disposition: Home Condition: Good Discharge Details Reason For Visit: Surveillance colonoscopy Attending Provider: Chris Banuelos Primary Care Provider: Moi Arrington Home Meds and New Rx's Prescriptions: Discontinued polyethylene glycol 3350 17 gram/dose powder 238 g PO ONCE Qty: 238 0RF Rx Instructions: take per colonoscopy instructions bisacodyl [Dulcolax (bisacodyl)] 5 mg tablet,delayed release (DR/EC) 5 mg PO ONCE Qty: 4 0RF Rx Instructions: take per colonoscopy instructions Discharge Instructions Instructions: Colorectal Polyps (GEN) Additional Instructions: Constantino, we were able to complete your colonoscopy today without any difficulty. Your previous anastomosis (connection) looks very good. It measures about 20 cm from your anus. I do not see any evidence of recurrent colon cancer in this area. I did find 2 polyps in your large intestine. One was 60 cm from your anus, the other was 35 cm from your anus. Both were quite small. I removed both of these completely today. I will notify you when I have the results of the pathology report. 1. If tolerated, consume a soft, low fiber diet for 1-2 days. 2. Do not drive, drink alcohol, operate machinery, make critical decisions, or do activities that require coordination or balance for 24 hours. 3. Because air was put into your colon during the procedure, expelling air from your rectum (passing gas or farting) is normal. 4. You may not have a bowel movement for 1-3 days because of the colonoscopy prep. This is normal. 5. Go directly to the emergency room if you notice any of the following: Develop chills (warm to touch), or if you have a thermometer and your temperature is above 101 Difficulty breathing or difficultly swallowing Persistent vomiting Severe abdominal pain, other than gas cramps Severe chest pain Black, tarry stools Any bleeding ? exceeding one tablespoon 6. Call your physician if the site where your intravenous was started becomes red, swollen, painful, and warm to touch. 7. Your physician has reviewed your pre-procedure medications. Please continue to take those medications as previously ordered. You will be given specific information/education regarding any changes to your medications before leaving. Activity:: Activity as Tolerated Diet:: As Tolerated Discharge Orders Discharge Orders: Discharge Order (Routine); Ordered 07/22/22 Ordered By: Chris Banuelos DS: Diagnosis Discharge Diagnosis (1) Personal history of colon cancer: Status: Acute Asessment and Plan: Follow-up on polypectomy results
--- NOTE | 2022-07-22 20:12 | COLE_ITS ---
Date of service: 07/23/22 Time of Service: 08:17 Colonoscopy Report Date of procedure: 07/23/22 Pre-op diagnosis general: Surveillance colonoscopy Post-op diagnosis procedure note: other (Colon polyps with personal history of colon cancer) Procedure: Colonoscopy with polypectomy Surgeon: Chris Banuelos Anesthesia Type: General:No Airway Estimated blood loss (mL): 10 Pathology: other (Colon polyp from 60 cm, colon polyp from 35 cm) Complications: None Disposition: same day Indications: Alberto is 61 years old. He has a personal history of colon cancer requring segmental colectomy. He is here for [facility] colonoscopy Prep: Miralax/Dulcolax Procedure Start Time: 07:56 Procedure End Time: 08:07 Retraction Time: 8 Findings: Healthy appearing anastomosis at 20 cm from the anal verge, colon polyps at 60 cm and 35 cm Procedure Description: After the induction of monitored anesthetic care, and with the patient in left lateral decubitus position, I began by performing an external anorectal exam.? Perineum and skin were normal, as was the anal verge.? There was no evidence of external hemorrhoids.? Next, I performed a digital rectal exam.? I did not appreciate any abnormal findings.? Next, I advanced a colonoscope into the rectal vault.? I performed retroflexion.? This was normal.? Using insufflation, I then advanced the colonoscope beyond the rectal folds towards the cecum.? I encountered his previous colorectal anastomosis around 20 cm from the anal verge. The anastomosis was widely patent. There was no evidence of stricture. I did not see any evidence of polyps or tumors in the area. The quality of the prep was excellent.? The scope was noted to be in the cecum by identification of the ileocecal valve and appendiceal orifice.? I then began withdrawing the colonoscope using repeated irrigation as necessary for full evaluation of the colonic mucosa. Around 60 cm from the anal verge I identified a 0.25 cm polyp. ?It appeared sessile in character. ?I was able to remove this with a cold forcep polypectomy. ?I examined the site, and there was minimal bleeding. ?Once this was completed, I continued to withdraw the scope and examine the remainder of the colonic mucosa. Similarly, there was a 0.25 cm sessile polyp at 35 cm. I was able to remove this completely with cold forceps as well. ?Once the scope was withdrawn to the level of the rectum, great care was taken to examine portions of the rectal folds.? Finally, the scope was withdrawn and the patient was brought to the same-day surgery recovery unit as the anesthetic wore off. ?The findings and instructions were shared with the patient prior to discharge.
[2022-07-23 07:01] VITALS: BP 144/94; PULSE 84; RESP 16; TEMP 37; O2SAT 98
[2022-07-23 07:25] VITALS: BMI 29.0
[2022-07-23] MEDS: Lactated Ringers 1,000 ML 80 ML IV (07:29)
--- NOTE | 2022-07-23 08:03 | BOWEL_PTH ---
PATIENT: Alberto Yanes LOC: [facility] U#:[id number] AGE/SX: 61/M ROOM: RE07/23/[address]: Chris Banuelos MD : 1960 BED: DIS: 07/23/2022 SPEC #: [id number] RECD: 07/23/22 11:32 STATUS: ALHAJI REQ #: [id number] AUR[place]: 07/23/22 08:[address]: Chris Banuelos DEPT: Surgical Specimen RECD BY: Shonna Kumar ENTERED: 07/23/22 11:33 SP TYPE: Bowel OTHR DR: Moi Arrington, PROGRAM ASSOCIATE Tissues: 1 - BIOPSY BOWEL 2 - BIOPSY BOWEL Procedures: GROSS AND MICRO LEVEL 4 Comments: [id number]
[2022-07-23 08:12] VITALS: BP 121/79; PULSE 72; RESP 16; TEMP 36.7; O2SAT 94
--- NOTE | 2022-07-23 08:19 | W.ANESPOSTOP ---
Postoperative Evaluation Date, Time and Location Date Performed: 07/23/22 Time Performed: 08:20 Patient Location: Day Surgery Unit Vital Signs Most Recent Imported Vital Signs: Most Recent Vital Signs Temp Pulse Resp BP Pulse Ox 36.7 C 72 16 121/79 94 07/23/22 08:12 07/23/22 08:12 07/23/22 08:12 07/23/22 08:12 07/23/22 08:12 Pain Score Most Recent Pain Score: Most Recent Pain Score Pain Level 0 07/23/22 08:12 Assessment Mental Status: Awake (Alert & Oriented to Patient Baseline) Airway and Respiratory Function: Patent airway with normal (patient baseline) respiratory exam Cardiovascular Function: Hemodynamically Stable Hydration Status: Adequately Hydrated Nausea & Vomiting: No Nausea or Vomiting Pain: Pt. Denies Any Pain Peripheral Nerve Block: Patient did not receive a nerve block
[2022-07-23 08:38] VITALS: BP 130/88; PULSE 75; RESP 16; TEMP 36.7; O2SAT 96
== END 2022-07-23 09:00 | disposition home or self-care (01) ==
PROVIDERS: PCP Nurse Practitioner Family; Visit Provider Surgery
PROC: 0DJD8ZZ Inspection of Lower Intestinal Tract, Via Natural or Artificial Opening Endoscopic (ICD-10-PCS; CPT 45378; principal; 2022-07-23 08:15)
DX: Z12.11 Encounter for screening for malignant neoplasm of colon (principal); K63.5 Polyp of colon; Z85.038 Personal history of other malignant neoplasm of large intestine; Z90.49 Acquired absence of other specified parts of digestive tract; Z86.010 Personal history of colon polyps
CPT/HCPCS: 45380; 88305

== ENCOUNTER 2023-05-13 13:57 | Outpatient (CLI) | payer MEDICAID, SELFPAY ==
[2023-05-13 13:20] LABS: Abs Immature Grans 0.02 10^3/uL (0.0-0.06); Absolute Basophil Count 0.05 10^3/uL (0.0-0.2); Absolute Eosinophil Count 0.28 10^3/uL (0.0-0.7); Absolute Lymphocyte Count 2.79 10^3/uL (1.2-3.4); Absolute Monocyte Count 0.52 10^3/uL (0.1-0.8); Absolute Neutrophil Count 4.94 10^3/uL (1.2-6.7); Basophils % 0.6; Eosinophils % 3.3; HCT 47.5 % (40.0-50.0); HGB 16.2 g/dL (13.5-17.5); Immature Grans % 0.2; Lymphocytes % 32.4; MCH 30.6 pg (27.0-33.0); MCHC 34.1 % (32.0-36.0); MCV 90 fL (80-95); MPV 10.3 fL (8.0-11.0); Neutrophils % 57.5; Platelet Count 317 10^3/uL (130-400); RDW 13.1 % (11.8-14.1); RDW-SD 42.7 fL
[2023-05-13 14:07] LABS: ALT 27 U/L (16-63); AST 12 U/L (15-37); Albumin 3.8 g/dL (3.4-5.0); Alkaline Phosphatase 78 U/L (46-116); Anion Gap 6.7 mmol/L (3-11); BUN 13 mg/dL (7-18); Bilirubin, Total 0.5 mg/dL (0.2-1.0); CO2 25.3 mmol/L (21.0-32.0); CREATININE 1.3 mg/dL (0.70-1.30); Calcium 8.8 mg/dL (8.5-10.1); Chloride 106 mmol/L (98-107); Glucose 116 mg/dL (74-106); Potassium 3.9 mmol/L (3.5-5.1); Sodium 138 mmol/L (136-145); Total Protein 7.3 g/dL (6.4-8.2)
[2023-05-14 10:24] LABS: CEA 1.8 ng/mL (See Note)
== END 2023-05-13 13:58 | disposition home or self-care (01) ==
LOC: LBO 13:57
PROVIDERS: PCP Nurse Practitioner Family; Visit Provider Internal Medicine
DX: Z85.038 Personal history of other malignant neoplasm of large intestine (principal)
CPT/HCPCS: 36415; 80053; 82378; 85025

== ENCOUNTER → 2023-07-18 01:31 | Outpatient (CLI) | payer MEDICAID, SELFPAY ==
--- NOTE | 2023-07-18 | DI.US_ITS ---
Exam(s) US RENAL EXAM: US RENAL CLINICAL HISTORY: Monitoring renal calculi,n20.0 TECHNIQUE: Ultrasound of both kidneys performed using standard protocol. COMPARISON: CT CT ABDOMEN PELVIS W from 03/09/2020 US US RENAL from 08/21/2022 FINDINGS: RIGHT KIDNEY: Measures 10.3 cm in length. No cysts evident. Normal cortical thickness and corticomedullary differen tiation .No solid masses No intrarenal calculi nor hydronephrosis. LEFT KIDNEY: Measures 10.5 cm in length. No cysts evident. Normal cortical thickness and corticomedullary differe ntiaion. No solids masses. There has a 7 millimeter echogenic focus in the lower pole of the left ki dney which is most probably a calculus, as previously evident on prior ultrasound exam. I note that on prior CT scan of March 2020 there was also a larger calculus in left kidney measuring 1.5 cm. URINARY BLADDER: Prevoid volume is 36 cc Postvoid volume is 0 cc No evidence of bladder mass nor diverticuli. Ureterovesical jets: Right jet identified. Left UV jet not identified. IMPRESSION: 1. There is persistent 7 millimeter calculus lower pole calyx of the left kidney. I note that on CT scan of March 2020 there was a significantly larger 15 mm calculus in left kidney. There is pres ently no evidence of obvious hydronephrosis nor hydroureter although the left ureterovesical jet was not able to be identified upon observation in the bladder. This, however, may be in part related to the bladder being relatively empty during this study. 2. There were no obvious calculi evident in the urinary bladder on this study. DATA REPOSITORY:
== END ==
PROVIDERS: PCP Nurse Practitioner Family; Visit Provider Nurse Practitioner Gerontology
DX: N20.0 Calculus of kidney (principal)
CPT/HCPCS: 76770

== ENCOUNTER 2024-05-08 01:18 | Outpatient (CLI) | payer MEDICAID, SELFPAY ==
--- OUTSIDE RECORDS SUMMARY | 2024-05-08 01:19 | XMS_ITS | Encounter Summary ---
Author Organization [facility] Address [address] [place] [address] Care Team Providers Care Architect Marine Name Role Phone Richy Mark MD Primary Care Provider Encounter Details Date Type Department Care Team (Latest Contact Info) Description 02/13/2017 17:04 EDT - 02/13/2017 23:59 EDT Hospital Encounter [address] [address] Unknown, Provider, MD Discharge Disposition: Home or Self Care Social History Tobacco Use Types Packs/Day Years Used Date Smoking Tobacco: Never Assessed Sex and Gender Information Value Date Recorded Sex Assigned at Not on file Legal Sex Male 17:47 EST Gender Identity Not on file Sexual Orientation Not on file documented as of this encounter Discharge Disposition Disposition Code Departure Means Destination Home or Self Senior Care documented in this encounter Plan of Treatment Not on file documented as of this encounter Visit Diagnoses Not on filedocumented in this encounter Care Teams Architect Marine Relationship Specialty Start Date End Date Richy Mark MD [address] [place] [address] [place] [address] PCP - General 03/06/11 documented as of this encounter
--- OUTSIDE RECORDS SUMMARY | 2024-05-08 01:19 | XMS_ITS | Encounter Summary ---
Author Organization [facility] Address [address] [place] [address] Care Team Providers Care Elder Counselor Name Role Phone Unknown, Provider Primary Care Provider Unava ilable Encounter Details Date Type Department Care Team (Late st Contact Info) Description 03/02/2011 Results Only [facility]- [facility] [phone] Marcelina Chaidez, DO [address] [place] [address] Social History Tobacco Use Types Packs/Day Years Used Date Smoking Tobacco: Never Assessed Sex and Gender Information Value Date Recorded Sex Assigned at Not on file Legal Sex Male 17:47 EST Gender Identity Not on file Sexual Orientation Not on file documented as of this encounter Plan of Treatment Not on file documented as of this encounter Procedures Procedure Name Priority Date/Time Associated Diagnosis Comments SURGICAL PATHOLOGY Routine 03/02/2011 0:00 EDT documented in this encounter Results * SURGICAL PATHOLOGY (03/02/2011 0:00 EDT) Pathology Report: SURGICAL PATHOLOGY REPORT Reports generated via electronic interface contain original data; however they are lacking the format of the original report. Caution should be taken when reading/interpreti ng unformatted reports. Name: ? JANNETTE ALBERTO L ? Accession #: ? [id number] ? : ? 1960 (Age: 50) ??M ? Collect Date: ? 03/02/2011 ? Location: ? [facility] ? Receive Date: ? 03/03/2011 ? Provider: MARCELINA CHAIDEZ DO Copy to: CHAPARRO BERRY MD ? Final Pathologic Diagnosis: A. ?Colon, 25 cm, tumor, biopsies: 1. 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 See comment. 2. ? Hyperplastic polyp. B. ?Colon, 20 cm, polyp, biopsy: 1. ?Tubular adenoma. Comment: ? The biopsy consists of mainly normal colonic mucosa with one abnormal fragment. The abnormal fragment consists of ulcerated colonic mucosa with a few glands that have severe atypia and is suspicious for invasive carcinoma. Further per talks with ??Dr. Chaidez, this is an obstructive mass. The scant volume of atypical glands and lack of unequivocal evidence of invasion likely represents an effect of inadequate sampling. Document reviewed and electronically signed by: KRISTOPHER RANKIN MD Report ??Date: 03/07/2011 15:54 By the signature above, the attending physician certifies that he/she has personally conducted a gross and/or microscopic examination of the described specimens and rendered or confirmed the above diagnosis. Specimen(s) Received: A. ?Tumor 25 cm bxs (colon) B. ? Colon polyp 20 cm Clinical History: ? Rectal bleeding, abdominal pain, weight loss Gross Description: ? Received in formalin labelled JannetteAlberto and colon tumor 25 cm, biopsies are six pink-baker irregular soft tissues ranging from 0.3 x 0.3 x 0.3 cm to 1.1 x 0.2 x 0.2 cm, submitted in toto in (A1) and (A2). Received in formalin labelled JannetteAlberto and colon polyp 20 cm is a single 0.6 x 0.3 x 0.2 cm pink-baker irregular soft tissue, submitted in toto in (B). (Jordyn Fernández)/mpl End of Report [facility] 03/02/2011 03/03/2011 9:4 3 EDT us Marcelina Chaidez DO PATHOLOGY ORDERABLES Final Res ult [facility] [address] [place] [address] documented in this encounter Visit Diagnoses Not on filedocumented in this encounter Care Teams Elder Counselor Relationship Specialty Start Date End Date Unknown, Provider, PCP - General 03/05/11 03/05/11 documented as of this encounter
--- OUTSIDE RECORDS SUMMARY | 2024-05-08 01:19 | XMS_ITS | Encounter Summary ---
Author Organization [facility] Address [address] [place] [address] Care Team Providers Care Production Sanitizer Name Role Phone Chaparro Mark MD Primary Care Provider [phone] Encounter Details Date Type Department Care Team (Late st Contact Info) Description 02/13/2017 Results Only [facility]- [facility] [phone] Gatito Watson MD [address] [place] [address] [address] [place], [place] [phone] Social History Tobacco Use Types Packs/Day Years [...] Date/Time Associated Diagnosis Comments SURGICAL PATHOLOGY Routine 02/13/2017 17 :43 EDT documented in this encounter Results * SURGICAL PATHOLOGY (02/13/2017 17:43 EDT) Pathology Report: SURGICAL PATHOLOGY REPORT Reports generated via electronic interface contain original data; however they are lacking the format of the original report. Caution should be taken when reading/interpret ing unformatted reports. Name: ? JANNETTE ALBERTO Darrius ? Accession #: ? [id number] ? : ? 1960 (Age: 56) ??M ? Collect Date: ? 02/13/2017 ? Location: ? [facility] ? Receive Date: ? 02/13/2017 ? Provider: GATITO WATSON MD Copy to: CHAPARRO MARK MD ? Final Pathologic Diagnosis: GALLBLADDER, CHOLECYSTECTOMY: - Chronic cholecystitis. Document reviewed and electronically signed by: FERNANDO DIAZ MD Report ??Date: 02/18/2017 11:30 By the signature above, the attending physician certifies that he/she has personally conducted a gross and/or microscopic examination of the described specimens and rendered or confirmed the above diagnosis. Specimen(s) Received: Gallbladder Clinical History: Biliary dyskinesia Gross Description: ? Received in formalin labelled with proper patient identification (initials C, S) and gallbladder is an intact gallbladder (6.6 x 2.5 x 1.0 cm) with an attached segment of cystic duct (0.5 cm in length x 0.2 cm in diameter). ? The serosa is baker-mueller and smooth. The mucosa is bile stained and velvety and the wall is 0.2 cm in thickness. The cystic duct lumen is patent. The cystic duct margin is inked black. No choleliths are present. ? Two site safety representative sections and the inked en face cystic duct margin are submitted in 1. Dr. Osorio 02/14/2017 10:38 AM End of Report [facility] 02/13/2017 17:4 3 EDT 02/13/2017 17:43 EDT us Gatito Watson MD PATHOLOGY ORDERABLES Fin al Result [facility] [address] [place] [address] documented in this encounter Visit Diagnoses Not on filedocumented in this encounter Care Teams Production Sanitizer Relationship Specialty Start Date End Date Chaparro Mark MD [facility] [facility] [address] PCP - General 03/06/11 documented as of this encounter
--- OUTSIDE RECORDS SUMMARY | 2024-05-08 01:19 | XMS_ITS | Referral Summary ---
Author Organization [facility] Address [address] [place] [address] Care Team Providers Care Housekeeping Laundry Worker Name Role Phone Richy Mark MD Primary Care Provider [phone] Social History Tobacco Use Types Packs/Day Years Used Date Smoking Tobacco: Never Assessed Interpersonal Safety Answer Date Record ed Physically Hurt Never 12/06/2019 Verbally Threaten Not on file 12/06/2019 Sex and Gender Information Value Date Recorded Sex Assigned at Not on file Legal Sex Male 17:47 EST Gender Identity Not on file Sexual Orientation Not on file Plan of Treatment Not on file Insurance [facility] Care Teams Housekeeping Laundry Worker Relationship Specialty Start Date End Date Richy Mark MD [address] [place] [address] [place] [address] PCP - General 03/06/11
--- OUTSIDE RECORDS SUMMARY | 2024-05-08 01:19 | XMS_ITS | Encounter Summary ---
Author Organization [facility] Address [address] [place] [address] Care Team Providers Care Single Ending Machine Operator Name Role Phone Richy Mark MD Primary Care Provider [phone] Encounter Details Date Type Department Care Team (Late st Contact Info) Description 05/13/2023 Lab Requisition [facility] Pathology & Laboratory Medicine - [facility] [address] [place], [place] [address] Outr Resulting Lab, Provider Social History Tobacco Use Types Packs/Day Years [...] Procedure Name Priority Date/Time Associated Diagnosis Comments CEA Routine 05/13/2023 12:46 EST documented in this encounter Results * CEA (05/13/2023 12:46 EST) CEA 1.8 See Note ng/mL 05/14/2023 10:20 EST [facility] Comment: % Distribution of CEA (ng/mL): ??0.0 - 2.5 in 98.2% of Nonsmokers and 87.3% of Smokers ??2.6 - 5 in 1.8% of Nonsmokers and 8% of Smokers ??5.1 - 10.1 in 4.7% of Smokers NOTE: Serum CEA concentration should not be interpeted as absolute evidence for the presence or absence of malignant disease. ?? Assayed on Siemens ADVIA Centaur XPT using chemiluminescent technology. ??Values obtained by different assay methods cannot be used interchangeably. Blood VENOUS BLOOD / Unknown 05/13/2023 12:46 EST 05/13/2023 23:15 EST us Provider Outr Resulting Lab CHEMISTRY & BLOOD GA S ORDERABLES Final Result [facility] [address] [place] [address] documented in this encounter Visit Diagnoses Not on filedocumented in this encounter Care Teams Single Ending Machine Operator Relationship Specialty Start Date End Date Richy Mark MD [address] [place] [address] [place] [address] PCP - General 03/06/11 documented as of this encounter
--- OUTSIDE RECORDS SUMMARY | 2024-05-08 01:19 | XMS_ITS | Encounter Summary ---
Author Organization [facility] Address [address] [place] [address] Care Team Providers Care Aerospace Quality Engineer Name Role Phone Richy Mark MD Primary Care Provider [phone] Encounter Details Date Type Department Care Team (Late st Contact Info) Description 05/23/2020 Lab Requisition [facility] Pathology & Laboratory Medicine - [address] [address] Outr Resulting Lab, Provider Social History Tobacco [...] Procedure Name Priority Date/Time Associated Diagnosis Comments ZZCOVID-19 TEST [facility] PCR Today 05/23/2020 10:53 EST COVID-19 TESTING Routine 05/23/2020 10:5 3 EST documented in this encounter Results * COVID-19 TEST [facility] PCR (05/23/2020 10:53 EST) Swab ENTIRE NASOPHARYNX / Unknown 05/23/2020 10:53 EST 05/23/2020 15:48 EST us Provider Outr Resulting Lab MICROBIOLOGY - GENER AL ORDERABLES Final Result [facility] [address] [place] [address] * COVID-19 TESTING (05/23/2020 10:53 EST) COVID-19 rt-PCR Result Negative Negative 05/24/2020 12:31 EST [facility] Comment: This test has not been FDA cleared or approved. This test has been authorized by FDA under an EUA for use by authorized laboratories. This test has been authorized only for detection of nucleic acid from 2019-nCoV, not for any other viruses or pathogens. This test is only authorized for the duration of the declaration that circumstances exist justifying the authorization of emergency use of in vitro diagnostic tests for detection and/or diagnosis of 2019-nCoV under section 564(b)(1) of Act, 21 U.S.C ?? 360bbb-3(b) (1), unless the authorization is terminated or revoked sooner. Negative results do not preclude 2019-nCoV infection and should not be used as the sole basis for treatment or other patient management decisions. Negative results must be combined with clinical observations, patient history, and epidemiological information. Testing was performed using the danna SARS-CoV-2 assay ([employer] on the Danna 6800 System Performing Lab Danna [address] [facility] 05/24/2020 12:31 EST [facility] Swab 05/23/2020 10:5 3 EST 05/23/2020 15:48 EST us Provider Outr Resulting Lab MICROBIOLOGY - GENER AL ORDERABLES Final Result [facility] [address] [place] [address] documented in this encounter Visit Diagnoses Not on filedocumented in this encounter Care Teams Aerospace Quality Engineer Relationship Specialty Start Date End Date Richy Mark MD [address] [place] [address] [place] [address] PCP - General 03/06/11 documented as of this encounter
--- OUTSIDE RECORDS SUMMARY | 2024-05-08 01:19 | XMS_ITS | Encounter Summary ---
Author Organization [facility] Address [address] [place] [address] Care Team Providers Care Artistic Director Name Role Phone Richy Mark MD Primary Care Provider [phone] Encounter Details Date Type Department Care Team (Late st Contact Info) Description 06/05/2022 Lab Requisition [facility] Pathology & Laboratory Medicine - [address] [address] Outr Resulting Lab, Provider Social History Tobacco [...] Priority Date/Time Associated Diagnosis Comments CEA Routine 06/05/2022 8:35 EST documented in this encounter Results * CEA (06/05/2022 8:35 EST) CEA 1.3 See Note ng/mL 06/05/2022 18:31 EST [facility] Comment: % Distribution of [...] used interchangeably. Blood VENOUS BLOOD / Unknown 06/05/2022 8:35 EST 06/05/2022 16:41 EST us Provider Outr Resulting Lab CHEMISTRY & BLOOD GA S ORDERABLES Final Result [facility] [address] [place] [address] documented in this encounter Visit Diagnoses Not on filedocumented in this encounter Care Teams Artistic Director Relationship Specialty Start Date End Date Richy Mark MD [address] [place] [address] [place] [address] PCP - General 03/06/11 documented as of this encounter
--- OUTSIDE RECORDS SUMMARY | 2024-05-08 01:19 | XMS_ITS | Encounter Summary ---
Author Organization [facility] Address [address] [place] [address] Care Team Providers Care Circuit Designer Name Role Phone Chaparro Mark MD Primary Care Provider [phone] Encounter Details Date Type Department Care Team (Late st Contact Info) Description 10/28/2015 Results Only [facility] [phone] Marcelina Posadas, DO [address] [place] [address] Social History Tobacco Use Types [...] Date/Time Associated Diagnosis Comments SURGICAL PATHOLOGY Routine 10/28/2015 12 :04 EDT documented in this encounter Results * SURGICAL PATHOLOGY (10/28/2015 12:04 EDT) Pathology Report: SURGICAL PATHOLOGY REPORT Reports generated via electronic interface contain original data; however they are lacking the format of the original report. Caution should be taken when reading/interpret ing unformatted reports. Name: ? ALBERTO BHATIA ? Accession #: ? [id number] ? : ? 1960 (Age: 55) ??M ? Collect Date: ? 10/28/2015 ? Location: ? [facility] ? Receive Date: ? 10/29/2015 ? Provider: MARCELINA POSADAS DO Copy to: CHAPARRO MARK MD ? Final Pathologic Diagnosis: COLON, SIGMOID, POLYP, BIOPSY: - ??Fragment of hyperplastic polyp. Document reviewed and electronically signed by: BERNIE RUSSO MD Report ??Date: 11/02/2015 13:19 By the signature above, the attending physician certifies that he/she has personally conducted a gross and/or microscopic examination of the described specimens and rendered or confirmed the above diagnosis. Specimen(s) Received: Sigmoid polyp Clinical History: H/O colon CA; clinical diagnosis code: ??Z83.038 Gross Description: ? Received in formalin labelled with proper patient identification (initials C, S) and sigmoid polyp is a single pink-baker tissue fragment (0.3 x 0.3 x 0.2 cm). Submitted intact in 1. Dr. Savage 10/31/2015 10:36 AM End of Report [facility] 10/28/2015 12:0 4 EDT 10/29/2015 12:04 EDT us Marcelina Posadas DO PATHOLOGY ORDERABLES Final Res ult [facility] [address] [place] [address] documented in this encounter Visit Diagnoses Not on filedocumented in this encounter Care Teams Circuit Designer Relationship Specialty Start Date End Date Chaparro Mark MD [address] [place] [address] [place] [address] PCP - General 03/06/11 documented as of this encounter
--- OUTSIDE RECORDS SUMMARY | 2024-05-08 01:19 | XMS_ITS | Encounter Summary ---
Author Organization Health system Address [address] [place] [address] Care Team Providers Care Fur Finisher Seamstress Name Role Phone Richy Mark MD Primary Care Provider [phone] Encounter Details Date Type Department Care Team (Latest Contact Info) Description 10/28/2015 15:13 EDT - 10/28/2015 23:59 EDT Hospital Encounter [address] [address] Unknown, Provider, MD Discharge Disposition: Home or [...] Code Departure Means Destination Home or Self Nursing Home documented in this encounter Plan of Treatment Not on file documented as of this encounter Visit Diagnoses Not on filedocumented in this encounter Care Teams Fur Finisher Seamstress Relationship Specialty Start Date End Date Richy Mark MD [address] [place] [address] [place] [address] PCP - General 03/06/11 documented as of this encounter
--- OUTSIDE RECORDS SUMMARY | 2024-05-08 01:19 | XMS_ITS | Encounter Summary ---
Author Organization [facility] Address [address] [place] [address] Care Team Providers Care High Speed Warper Tender Name Role Phone Chaparro Mark MD Primary Care Provider [phone] Encounter Details Date Type Department Care Team (Late st Contact Info) Description 06/12/2016 Results Only [facility] [phone] Gatito Watson MD [address] [place] [address] [address] [place], [place] [phone] Social History Tobacco Use Types Packs/Day Years [...] Date/Time Associated Diagnosis Comments SURGICAL PATHOLOGY Routine 06/12/2016 18 :54 EST documented in this encounter Results * SURGICAL PATHOLOGY (06/12/2016 18:54 EST) Pathology Report: SURGICAL PATHOLOGY REPORT Reports generated via electronic interface contain original data; however they are lacking the format of the original report. Caution should be taken when reading/interpret ing unformatted reports. Name: ? ALBERTO BHATIA ? Accession #: ? [id number] ? : ? 1960 (Age: 55) ??M ? Collect Date: ? 06/12/2016 ? Location: ? [facility] ? Receive Date: ? 06/12/2016 ? Provider: GATITO WATSON MD Copy to: CHAPARRO MARK MD ? Final Pathologic Diagnosis: GASTROESOPHAGEAL JUNCTION, BIOPSY: - Squamocolumnar junctional mucosa with features consistent with reflux esophagitis. - Negative for intestinal metaplasia or dysplasia. Document reviewed and electronically signed by: FERNANDO DIAZ MD Report ??Date: 06/15/2016 13:14 By the signature above, the attending physician certifies that he/she has personally conducted a gross and/or microscopic examination of the described specimens and rendered or confirmed the above diagnosis. Specimen(s) Received: Bx GE junction Clinical History: LUQ pain Gross Description: ? Received in formalin labelled with proper patient identification (initials C, S) and bx GE junction are two red-white tissues (0.2 x 0.2 x 0.2 cm and 0.4 x 0.3 x 0.2 cm). Entirely submitted in 1. FELIZ Woodall (ASCP) 06/13/2016 8:48 AM End of Report [facility] 06/12/2016 18:5 4 EST 06/12/2016 18:54 EST us Gatito Watson MD PATHOLOGY ORDERABLES Fin al Result [facility] [address] [place] [address] documented in this encounter Visit Diagnoses Not on filedocumented in this encounter Care Teams High Speed Warper Tender Relationship Specialty Start Date End Date Chaparro Mark MD [address] [place] [address] [place] [address] PCP - General 03/06/11 documented as of this encounter
--- OUTSIDE RECORDS SUMMARY | 2024-05-08 01:19 | XMS_ITS | Encounter Summary ---
Author Organization [facility] Address [address] [place] [address] Care Team Providers Care Sugar Trucker Name Role Phone Richy Mark MD Primary Care Provider [phone] Encounter Details Date Type Department Care Team (Late st Contact Info) Description 07/20/2019 Lab Requisition [facility] Pathology & Laboratory Medicine - [facility] [address] [place] [address] Deneen Blanco MD [address] [place] [address] [address] [place], [place] [id number] Encounter for screening for malignant neoplasm of colon Social History Tobacco Use Types Packs/Day Years [...] Priority Date/Time Associated Diagnosis Comments SURGICAL PATHOLOGY Today 07/20/2019 9:22 EDT Encounter for screening for malignant neoplasm of colon documented in this encounter Results * SURGICAL PATHOLOGY (07/20/2019 9:22 EDT) Final Diagnosis A. COLON, SIGMOID, POLYPS X3, BIOPSY: - Hyperplastic polyps. B. COLON, ASCENDING, POLYP, BIOPSY: - Tubular adenoma. C. RECTUM, POLYPS X2, BIOPSY: - Hyperplastic polyps. 07/21/2019 12:56 EDT [facility] at 1256 Attestation By the signature below, the attending physician certifies that they have 1) personally conducted a gross and/or microscopic examination of the described specimen(s), and/or personally interpreted the results of laboratory testing of the described specimen(s), and 2) personally rendered or confirmed the above diagnosis. 07/21/2019 12:56 [facility] at 1256 Clinical History Personal history of colon cancer +polyp. Colon cancer screening 07/21/2019 12:56 [facility] Gross Description A. Received in formalin labelled with proper patient identification (initials C, S) and sigmoid polyps X3? are two baker-brown nodular tissues averaging 0.3 x 0.2 x 0.2 cm. Entirely submitted in A1. NOTE TO PATHOLOGIST: For part A, the requisition lists the specimen as 3, however only 2 pieces of tissue are identified in the specimen container, per the cutting room. B. Received in formalin labelled with proper patient identification (initials C, S) and ascending polyp is a baker nodular tissue, 0.2 x 0.2 x 0.1 cm. Entirely submitted in B 1. C. Received in formalin labelled with proper patient identification (initials C, S) and rectal polyps X2 is a single baker-brown tissue, 0.3 x 0.2 x 0.1 cm. Entirely submitted in C1. NOTE TO PATHOLOGIST: For part C, the requisition lists the specimen as 2, however only 1 pieces of tissue are identified in the specimen container, per the cutting room. Angela Carias 07/20/2019 17:43 07/21/2019 12:56 T [facility] Scanned Images 07/21/2019 12:56 [facility] Tissue SPECIMEN FROM RECTUM / Unknown 07/20/2019 9:22 EDT 07/20/2019 17:09 EDT Tissue specimen (specimen) COLON STRUCTURE / Unknown 07/20/2019 9:22 EDT 07/20/2019 17:09 EDT Tissue specimen (specimen) SPECIMEN FROM RECTUM / Unknown 07/20/2019 9:22 EDT 07/20/2019 17:09 EDT Deneen Blanco MD PATHOLOGY ORDERABLES Fin al Result [facility] [address] [place] [address] documented in this encounter Visit Diagnoses Diagnosis Encounter for screening for malignant neoplasm of colon Special screening for malignant neoplasms, colon documented in this encounter Care Teams Sugar Trucker Relationship Specialty Start Date End Date Richy Mark MD [facility] [facility] [place] [address] PCP - General 03/06/11 documented as of this encounter
--- OUTSIDE RECORDS SUMMARY | 2024-05-08 01:19 | XMS_ITS | Encounter Summary ---
Author Organization [facility] Address [address] [place] [address] Care Team Providers Care Preschool Director Name Role Phone Richy Mark MD Primary Care Provider [phone] Encounter Details Date Type Department Care Team (Latest Contact Info) Description 06/12/2016 7:40 EST - 06/12/2016 23:59 EST Hospital Encounter [address] [address] Unknown, Provider, MD Discharge Disposition: Home or [...] Code Departure Means Destination Home or Self Shelter documented in this encounter Plan of Treatment Not on file documented as of this encounter Visit Diagnoses Not on filedocumented in this encounter Care Teams Preschool Director Relationship Specialty Start Date End Date Richy Mark MD [address] [place] [address] [place] [address] PCP - General 03/06/11 documented as of this encounter
--- OUTSIDE RECORDS SUMMARY | 2024-05-08 01:19 | XMS_ITS | Encounter Summary ---
Author Organization [facility] Address [address] [place] [address] Care Team Providers Care Waterfront Director Name Role Phone Richy Mark MD Primary Care Provider [phone] Encounter Details Date Type Department Care Team (Late st Contact Info) Description 05/09/2020 Lab Requisition [facility] Pathology & Laboratory Medicine - [address] [address] Outr Resulting Lab, Provider Social History Tobacco [...] Comments ZZCOVID-19 TEST [facility] PCR Today 05/09/2020 10:11 EST COVID-19 TESTING Routine 05/09/2020 10:1 1 EST documented in this encounter Results * COVID-19 TEST [facility] PCR (05/09/2020 10:11 EST) Swab ENTIRE NASOPHARYNX / Unknown 05/09/2020 10:11 EST 05/09/2020 16:39 EST us Provider Outr Resulting Lab MICROBIOLOGY - GENER AL ORDERABLES Final Result [facility] [address] [place] [address] * COVID-19 TESTING (05/09/2020 10:11 EST) COVID-19 rt-PCR Result Negative Negative 05/10/2020 19:[address] [facility] Comment: Negative results do not preclude 2019-nCoV infection and should not be used as the sole basis for treatment or other patient management decisions. Negative results must be combined with clinical observations, patient history, and epidemiological information. This test was developed and its performance characteristics determined by [facility]. It has not been cleared or approved by the US Food and Drug Administration. FDA does not require this test to go through premarket FDA review. This test is used for clinical purposes. It should not be regarded as investigational or for research. This laboratory is certified under the Clinical Laboratory Improvement Amendments (CLIA) as qualified to perform high complexity clinical laboratory testing. This test is based on the [facility] COVID-19 Emergency Use Authorization (EUA) assay, with minor modification as defined by the FDA Performed on the [employer] Flex. Performing Lab [facility] 05/10/2020 19:[address] [facility] Swab 05/09/2020 10:1 1 EST 05/09/2020 16:39 EST us Provider Outr Resulting Lab MICROBIOLOGY - GENER AL ORDERABLES Final Result Performing Organization Address City/State/[facility] Co de Phone Number [facility] [address] [place] [address] documented in this encounter Visit Diagnoses Not on filedocumented in this encounter Care Teams Waterfront Director Relationship Specialty Start Date End Date Richy Mark MD [address] [place] [address] [place] [address] PCP - General 03/06/11 documented as of this encounter
--- OUTSIDE RECORDS SUMMARY | 2024-05-08 01:19 | XMS_ITS | Encounter Summary ---
Author Organization [facility] Address [address] [place] [address] Care Team Providers Care Shop Manager Name Role Phone Chaparro Mark MD Primary Care Provider [phone] Encounter Details Date Type Department Care Team (Late st Contact Info) Description 04/04/2011 Results Only [facility]- [facility] [phone] [place] Marcelina L, DO [address] [place] [address] Social History Tobacco Use Types [...] Date/Time Associated Diagnosis Comments SURGICAL PATHOLOGY Routine 04/04/2011 0:00 EST documented in this encounter Results * SURGICAL PATHOLOGY (04/04/2011 0:00 EST) Pathology Report: SURGICAL PATHOLOGY REPORT Reports generated via electronic interface contain original data; however they are lacking the format of the original report. Caution should be taken when reading/interpreting unformatted reports. Name: ? ALBERTO BHATIA ? Accession #: ? [id number] ? : ? 1960 (Age: 50) ??M ?Collect Date: ? 04/04/2011 ? Location: ? [facility] ? Receive Date: ? 04/05/2011 ? Provider: MARCELINA CHAIDEZ DO Copy to: CHAPARRO MARK MD ? Final Pathologic Diagnosis: ? Colon, sigmoid, segmental resection: 1. ?Adenocarcinoma. ??See comment. ? - Histologic grade: Low-grade. - Type of polyp in which invasive carcinoma arose: None identified. - Tumor site: Sigmoid. - Tumor size: 5.0 x 3.0 x 0.1 cm. - Macroscopic tumor perforation: Not identified. - Depth of invasion: Non-peritonealized pericolic tissue (AJCC: pT3, pN2a). - Lymph vascular invasion: Not identified. - Perineural invasion: Not identified. - Intratumoral lymphocytic response: Mild to moderate. - Peritumoral lymphocytic response: Mild to moderate. - Neoadjuvant treatment effect: Not applicable. - Tumor deposits: Identified. - Surgical resection margins: ?? - Proximal margin: Uninvolved by invasive carcinoma. ?? - Distal margin: Uninvolved by invasive carcinoma. ?? - Radial margin: Uninvolved by invasive carcinoma. ? - Distance of invasive carcinoma from closest margin: 2.1 cm from nearest peripheral margin. ? 2. ?? Lymph nodes, pericolic: ?- Four of eighteen lymph nodes positive for metastatic carcinoma (4/18). ?- Largest metastatic focus: ??4.0 mm extranodal extension. Comment: ? Given the young age of onset of cancer and/or MSI-H histologic features and/or multiple tumors in this individual, it is possible that this individual has a heritable mutation in mismatch repair genes (Girard syndrome). ??A genetic consultation should be considered. (Dr. Hanson)/amari ? Document reviewed and electronically signed by: ? BERNARD MCDONALD MD ? Report ??Date: 04/09/2011 16:52 By the signature above, the attending physician certifies that he/she has personally conducted a gross and/or microscopic examination of the described specimens and rendered or confirmed the above diagnosis. Specimen(s) Received: ? Sigmoid colon ? 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 Gross Description: ? Received in formalin labelled Farzana, Alberto and sigmoid colon is a portion of colon received open and measuring 11.0 cm in length with a luminal circumference of 5.0 cm. ??The mucosa is baker-pink and folded. ??The wall thickness is 0.5 cm. ??The serosa is yellow-baker and fatty with minimal attached messentary. In the mid portion of the specimen there is a circumferential indurated mass measuring 5 x 3 x 0.1 cm. This area is red-pink. ??On the serosal surface there is a granular and puckered area which is inked orange. ??The radial margin is inked black, the specimen is unoriented and the margins of the colon are inked black. ??The non-stapled colon margin is 2.1 cm from the mass and the stapled colon margin is 5.5 cm from the identified mass. ??Entrepreneurial Finance Professor sections are submitted as follows: BLOCK ORTIZ A1, A2 ?Colon margin A3, A4 ?Opposite colon margin, section adjacent to stapled end A5 ?Radial margin A6 ?Mass to adjacent puckered area A7 ?Mass to adjacent puckered area A8 ?Mass to normal colon, nearest non-stapled edge A9 ?Mass to adjacent normal colon, near stapled edge A10 ?Uninvolved colon A11-A24 ? Potential lymph nodes A25 ?One lymph node, bisected (Dr. Hanson)/kmm ? MISMATCH REPAIR PROTEIN ASSAY (MMR) ? Date Ordered: ? 04/18/2011 ? Status: ?? Signed Out ?Date Complete: ? 04/18/2011 ? By: ??Neelima Hier ? Date Reported: ? 04/18/2011 ? Interpretation Tumor type: ??Adenocarcinoma arising from the sigmoid colon. Immunohistochemical staining: ??Normal expression of MLH1, PMS2, MSH2 and MSH6 Comment ? These results are indicative of normal DNA mismatch repair function within the tumor. ??This patient most likely does not have an inherited colon cancer syndrome due to defective DNA mismatch repair (Girard syndrome). ??However, it is important to note that 10% of Girard syndrome patients may reveal normal expression of mismatch repair proteins due to mutation in genes other than mismatch repair. ??Hence these findings should be interpreted in the context of family and clinical history. ??If results do not match the clinical findings, additional testing should be considered. NOTE: ??One or more of the reagents used in immunohistochemical testing in this case may not have been cleared or approved by the U.S. Food and Drug Administration (FDA). ??The FDA has determined that such clearance or approval is not necessary. ??These tests are used for clinical purposes. ??They should not be regarded as investigational or for research. ??These reagents' ??performance characteristics have been determined by [facility]. ??This laboratory is certified under the Clinical Laboratory Improvement Amendments of 1988 (CLIA-88) as qualified to perform high complexity clinical laboratory testing. ? Description Testing requested by: ??Marcelina Trevino DO. Tissue submitted: ??Formalin fixed paraffin embedded tissue block labelled [facility] [id number] from block A8 Method: ??Immunohistochemical staining is used to determine the presence of protein expression for MLH1 ([id number], Cell Myke), PMS2 (MRQ-28, Cell Myke), MSH2 ([id number], Cell Myke), and MSH6 (44, Cell Myke). ??Normal epithelial cells and lymphocytes exhibit strong nuclear staining and serve as positive internal controls for staining of these proteins. Document reviewed and electronically signed by: ? KRISTOPHER RANKIN MD ? Report date: 04/18/2011 By the signature above, the attending physician certifies that he/she has personally conducted a gross and/or microscopic examination of the described specimens and rendered or confirmed the above diagnosis. End of Report [facility] 04/04/2011 04/05/2011 9:3 5 EST us Marcelina Chaidez DO PATHOLOGY ORDERABLES Final Res ult [facility] [address] [place] [address] documented in this encounter Visit Diagnoses Not on filedocumented in this encounter Care Teams Shop Manager Relationship Specialty Start Date End Date Chaparro Mark MD [address] [place] [address] [place] [address] PCP - General 03/06/11 documented as of this encounter
--- OUTSIDE RECORDS SUMMARY | 2024-05-08 01:19 | XMS_ITS | Clinical Summary ---
Author Organization [facility] Address [address] [place] [address] Care Team Providers Care Api Architect Name Role Phone Richy Mark MD Primary Care Provider [phone] Social History Tobacco Use Types Packs/Day Years Used Date Smoking Tobacco: Never Assessed Interpersonal Safety Answer Date Record ed Physically Hurt Never 12/06/2019 Verbally Threaten Not on file 12/06/2019 Sex and Gender Information Value Date Recorded Sex Assigned at Not on file Legal Sex Male 17:47 EST Gender Identity Not on file Sexual Orientation Not on file Plan of Treatment Health Maintenance Due Date Last Done Comments Hepatitis C Screen 1960 COVID-19 Vaccine (2023-25 season) 2024 RSV Immunization ( o r 60+ Years) (1 - 1-dose 75+ series) 2036 Insurance [facility] Care Teams Api Architect Relationship Specialty Start Date End Date Richy Mark MD [address] [place] [address] [place] [address] PCP - General 03/06/11
--- OUTSIDE RECORDS SUMMARY | 2024-05-08 01:19 | XMS_ITS | Encounter Summary ---
Author Organization [facility] Address [address] [place] [address] Care Team Providers Care Fixture Maker Name Role Phone Richy Mark MD Primary Care Provider [phone] Encounter Details Date Type Department Care Team (Late st Contact Info) Description 07/23/2022 Lab Requisition [facility] Pathology & Laboratory Medicine - [facility] [address] [place] [address] Chris Banuelos MD [address] [place] [address], [address] [place] [address] Personal history of other malignant neoplasm of large intestine Social History Tobacco Use Types Packs/Day Years [...] Date/Time Associated Diagnosis Comments SURGICAL PATHOLOGY Today 07/23/2022 8:03 EDT Personal history of other malignant neoplasm of large intestine documented in this encounter Results * SURGICAL PATHOLOGY (07/23/2022 8:03 EDT) Note to Patient The following pathology results have been interpreted by your pathologist and may be available to you before your health provider has had the opportunity to review them. Please allow time for your provider to receive these results and explore management options, if applicable. 07/26/2022 14:57 EDT [facility] Final Diagnosis A. COLON, 60 CM, BIOPSY: - Polypoid colonic mucosa with no significant pathologic abnormality B. COLON, 35 CM, BIOPSY: - Tubular adenoma 07/26/2022 14:57 [facility] Attestation By the signature below, the attending physician certifies that they have 1) personally conducted a gross and/or microscopic examination of the described specimen(s), and/or personally interpreted the results of laboratory testing of the described specimen(s), and 2) personally rendered or confirmed the above diagnosis. 07/26/2022 14:57 [facility] at 1457 Clinical History Hx of colon cancer, polyp; clinical diagnosis code: Z85.038 07/26/2022 14:57 [facility] Gross Description A. Received in formalin labelled with proper patient identification (initials C, S) and colon polyp @ 60 cm are two baker irregular tissues, 0.3 x 0.1 x 0.1 cm and 0.5 x 0.2 x 0.1 cm. Entirely submitted in A1. B. Received in formalin labelled with proper patient identification (initials C, S) and colon polyp @ 35 cm are two baker tissues averaging 0.3 x 0.2 x 0.1 cm. Entirely submitted in B1. FELIZ PAULSON(ASCP) 07/24/2022 7:24 07/26/2022 14:57 EDT [facility] Performing Lab [facility] 07/26/2022 14:57 T [facility] Scanned Images 07/26/2022 14:57 T [facility] Tissue ENTIRE COLON / Unknown 07/23/2022 8:03 EDT 07/23/2022 17:27 EDT Tissue specimen (specimen) COLON STRUCTURE / Unknown 07/23/2022 8:03 EDT 07/23/2022 17:27 EDT us Chris Banuelos MD PATHOLOGY ORDERABLES Final Resu lt [facility] [address] [place] [address] documented in this encounter Visit Diagnoses Diagnosis Personal history of other malignant neoplasm of large intestine documented in this encounter Care Teams Fixture Maker Relationship Specialty Start Date End Date Richy Mark MD [address] [place] [address] [place] [address] PCP - General 03/06/11 documented as of this encounter
--- OUTSIDE RECORDS SUMMARY | 2024-05-08 01:19 | XMS_ITS | Encounter Summary ---
Author Organization [facility] Address [address] [place] [address] Care Team Providers Care Manager Night Name Role Phone Richy Mark MD Primary Care Provider [phone] Encounter Details Date Type Department Care Team (Late st Contact Info) Description 04/19/2020 Lab Requisition [facility] Pathology & Laboratory Medicine - [facility] [address] [place], [place] [address] Outr Resulting Lab, Provider Social History Tobacco [...] Priority Date/Time Associated Diagnosis Comments CEA Routine 04/19/2020 14:50 EST documented in this encounter Results * CEA (04/19/2020 14:50 EST) CEA 0.7 See Note ng/mL 04/19/2020 21:49 EST [facility] Comment: % Distribution of [...] used interchangeably. Blood VENOUS BLOOD / Unknown 04/19/2020 14:50 EST 04/19/2020 20:52 EST us Provider Outr Resulting Lab CHEMISTRY & BLOOD GA S ORDERABLES Final Result Performing Organization Address City/State/[facility] Co de Phone Number [facility] [address] [place] [address] documented in this encounter Visit Diagnoses Not on filedocumented in this encounter Care Teams Manager Night Relationship Specialty Start Date End Date Richy Mark MD [address] [place] [address] [place] [address] PCP - General 03/06/11 documented as of this encounter
--- OUTSIDE RECORDS SUMMARY | 2024-05-08 01:19 | XMS_ITS | Encounter Summary ---
Author Organization [facility] Address [address] [place] [address] Care Team Providers Care Heating And Ventilation Engineer Name Role Phone Richy Mark MD Primary Care Provider [phone] Encounter Details Date Type Department Care Team (Late st Contact Info) Description 05/10/2021 Lab Requisition [facility] Pathology & Laboratory Medicine - [facility] [address] [place], [place] [address] Outr Resulting Lab, Provider Social History Tobacco [...] Priority Date/Time Associated Diagnosis Comments CEA Routine 05/10/2021 13:05 EST documented in this encounter Results * CEA (05/10/2021 13:05 EST) CEA 1.4 See Note ng/mL 05/10/2021 23:16 EST [facility] Comment: % Distribution of CEA [...] used interchangeably. Blood VENOUS BLOOD / Unknown 05/10/2021 13:05 EST 05/10/2021 21:22 EST us Provider Outr Resulting Lab CHEMISTRY & BLOOD GA S ORDERABLES Final Result [facility] [address] [place] [address] documented in this encounter Visit Diagnoses Not on filedocumented in this encounter Care Teams Heating And Ventilation Engineer Relationship Specialty Start Date End Date Richy Mark MD [address] [place] [address] [place] [address] PCP - General 03/06/11 documented as of this encounter
--- OUTSIDE RECORDS SUMMARY | 2024-05-08 01:19 | XMS_ITS | Encounter Summary ---
Author Organization [facility] Address [address] [place] [address] Care Team Providers Care Diamond Finishing Supervisor Name Role Phone Richy Mark MD Primary Care Provider [phone] Encounter Details Date Type Department Care Team (Late st Contact Info) Description 04/24/[address] [facility] Pathology & Laboratory Medicine - [facility] [address] [place] [address] Unknown, Provider, Social History Tobacco Use Types Packs/Day Years [...] Priority Date/Time Associated Diagnosis Comments CEA Routine 04/24/2019 13:58 EST documented in this encounter Results * CEA (04/24/2019 13:58 EST) CEA 0.7 See Note ng/mL 04/27/2019 11:06 EST [facility] Comment: % Distribution of CEA [...] used interchangeably. Blood VENOUS BLOOD / Unknown 04/24/2019 13:58 EST 04/26/2019 16:06 EST us Provider Unknown CHEMISTRY & BLOOD GAS ORDERA BLES Final Result [facility] [address] [place] [address] documented in this encounter Visit Diagnoses Not on filedocumented in this encounter Care Teams Diamond Finishing Supervisor Relationship Specialty Start Date End Date Richy Mark MD [address] [place] [address] [place] [address] PCP - General 03/06/11 documented as of this encounter
[2024-05-08 11:22] LABS: Abs Immature Grans 0.03 10^3/uL (0.0-0.06); Absolute Basophil Count 0.04 10^3/uL (0.0-0.2); Absolute Eosinophil Count 0.23 10^3/uL (0.0-0.7); Absolute Lymphocyte Count 2.39 10^3/uL (1.2-3.4); Absolute Monocyte Count 0.55 10^3/uL (0.1-0.8); Absolute Neutrophil Count 5.09 10^3/uL (1.2-6.7); Basophils % 0.5 %; Eosinophils % 2.8 %; HGB 15.5 g/dL (13.5-17.5); Immature Grans % 0.4 %; Lymphocytes % 28.7 %; MCH 30.6 pg (27.0-33.0); MCHC 33.7 % (32.0-36.0); MCV 91 fL (80-95); MPV 10.1 fL (8.0-11.0); Monocytes % 6.6 %; Platelet Count 240 10^3/uL (130-400); RBC 5.07 10^6/uL (4.36-5.78); RDW 12.8 % (11.8-14.1); RDW-SD 41.9 fL; WBC 8.33 10^3/uL (4.4-10.8)
[2024-05-08 11:49] LABS: ALT 31 U/L (16-63); AST 15 U/L (15-37); Albumin 3.6 g/dL (3.4-5.0); Alkaline Phosphatase 83 U/L (46-116); Anion Gap 9.1 mmol/L (3-11); BUN 14 mg/dL (7-18); Bilirubin, Total 0.54 mg/dL (0.2-1.0); CO2 24.9 mmol/L (21.0-32.0); CREATININE 1.4 mg/dL (0.70-1.30); Calcium 8.8 mg/dL (8.5-10.1); Chloride 108 mmol/L (98-107); Estimated GFR 56.83 (mL/min/1.73m2); Glucose 94 mg/dL (74-106); Potassium 4.3 mmol/L (3.5-5.1); Sodium 142 mmol/L (136-145)
[2024-05-08 18:25] LABS: CEA 1.5 ng/mL (See Note)
== END 2024-05-08 01:19 | disposition home or self-care (01) ==
LOC: LBO 01:18
PROVIDERS: PCP Nurse Practitioner Family; Visit Provider Nurse Practitioner
DX: Z85.038 Personal history of other malignant neoplasm of large intestine (principal)
CPT/HCPCS: 36415; 80053; 82378; 85025

== ENCOUNTER 2024-07-08 10:52 | Emergency (ER) | payer MEDICAID, SELFPAY ==
[2024-07-08] VITALS (7 sets, daily range): BP systolic 130–138; BP diastolic 87–97; PULSE 64–73; RESP 15–21; TEMP 36.6–36.9; O2SAT 94–98
--- NOTE | 2024-07-08 11:00 | DI.CT_ITS ---
Exam(s) CT BRAIN NECK CTA EXAM: CT BRAIN NECK CTA CLINICAL HISTORY: double vision with OLSEN, eval for aneurysm or mass. TECHNIQUE: Imaging Protocol: Axial CT angiography was performed with multi-slice acquisition and mu lti-planar and/or 3D reconstructions. CONTRAST MATERIAL: Intravenous: Omnipaque 350 Contrast volume:structured data in ml COMPARISON: No exams were available for comparison FINDINGS: CTA Neck W: Aortic arch anatomy: The aortic arch anatomy is conventional and there is no significant stenosis at the origin of the great vessels off of the aortic arch. No intimal flap evident. Anterior circulation: Both common carotid arteries ascend with normal luminal diameters. At the level the carotid bulbs and proximal internal carotid arteries there is no significant plaque and no significant stenosis. Posterior circulation: Both vertebral arteries originate in conventional fashion off of the subclavian arteries and there is no obvious stenosis at the origin of the vertebral arteries. Both vertebral arteries exhibit normal luminal diameters within the foramen transversarium. Both vertebral arteries contribute to the formation of the basilar artery at the skull base. CTA Brain W: Anterior circulation: Both internal carotid arteries are patent in the skull base-carotid canals as well as within the cave rnous sinuses. The supraclinoid aspects of the ICAs are patent. Both A1 segments are patent as are the anterior cer ebral arteries and there is no evidence of aneurysm at the level of the anterior communicating artery . Both middle cerebral arteries are patent with no evidence of significant stenosis nor intraluminal th rombus. There also no aneurysms of these vessels. Posterior circulation: The basilar artery ascends in the midline. Distally it gives off patent bilateral superior cerebella r arteries. Above this level the basilar artery terminates as patent bilateral posterior cerebral arteries. There is no evidence of aneurysm at the tip of the basilar artery nor elsewhere in the [id number] is. CT BRAIN: There are no skull fractures. However, there is complete opacification of the left maxillary sinus a nd there is also some mucosal thickening in the right maxillary sinus without fluid level therein. T here is a small surgical defect in the wall of the right maxillary sinus. Some mucosal thickening is noted anteriorly in the sphenoid sinus as well as in the left frontal sinus and for left frontoethmo idal recess. Incidentally noted is a density in the left external auditory canal measuring 1.2 x 0.6 cm. This may represent cerumen. Similar but slightly smaller finding in the opposite-right external auditory can al. There is no evidence of intracranial hemorrhage, mass effect, or shift of midline structures. There are no extra-axial fluid collections. Ventricles are not enlarged or shifted. There are no ring enh ancing lesions in the brain and no abnormal meningeal enhancement. There are no ring enhancing lesions in the brain. No abnormal meningeal enhancement, focal nor diffu se. IMPRESSION: 1. Patent carotid arteries in the neck. No hemodynamically significant stenosis. 2. Patent vertebral arteries. 3. Patent intracranial arteries. No evidence of aneurysm. No evidence of vascular malformation. Th ree 4. No evidence of intracranial hemorrhage. No abnormal enhancing intracranial brain lesions. No abn ormal meningeal enhancement. 5. Significant sinus mucosal disease as described above. There is also evidence of previous endoscop ic paranasal sinus surgery Findings called by myself to ER provider 07/08/2024 at 12:55 p.m. RADIATION DOSE DELIVERED: 2,360.55mGy.cm Total DLP DATA REPOSITORY: All CT scans at this facility are submitted to the National Radiology Data Registry (NRDR) Dose Index Registry (DIR) with the [employer] (A[employer]). RADIATION OPTIMIZATION: All CT scans at this facility use at least one of these dose optimization te chniques: automated exposure control; mA and/or kV adjustment per patient size (includes targeted exa ms where dose is matched to clinical indication); or iterative reconstruction.
[2024-07-08 11:34] LABS: Abs Immature Grans 0.03 10^3/uL (0.0-0.06); Absolute Basophil Count 0.04 10^3/uL (0.0-0.2); Absolute Eosinophil Count 0.22 10^3/uL (0.0-0.7); Absolute Lymphocyte Count 2.56 10^3/uL (1.2-3.4); Absolute Monocyte Count 0.57 10^3/uL (0.1-0.8); Absolute Neutrophil Count 5.45 10^3/uL (1.2-6.7); Basophils % 0.5 %; Eosinophils % 2.5 %; HCT 47.4 % (40.0-50.0); HGB 15.6 g/dL (13.5-17.5); Immature Grans % 0.3 %; Lymphocytes % 28.9 %; MCH 30.1 pg (27.0-33.0); MCHC 32.9 % (32.0-36.0); MCV 91 fL (80-95); MPV 10.3 fL (8.0-11.0); Monocytes % 6.4 %; Neutrophils % 61.4 %; Platelet Count 272 10^3/uL (130-400); RBC 5.19 10^6/uL (4.36-5.78); RDW 12.5 % (11.8-14.1); RDW-SD 41.9 fL; WBC 8.87 10^3/uL (4.4-10.8)
[2024-07-08] MEDS: ACETAMINOPHEN 1,000 MG/100 ML BAG 400 MG IVPB (11:35)
[2024-07-08 11:58] LABS: TSH (W/Ref FT4) 3.05 uIU/mL (0.36-3.74)
[2024-07-08 12:01] LABS: ALT 27 U/L (16-63); AST 13 U/L (15-37); Alkaline Phosphatase 92 U/L (46-116); Anion Gap 9.6 mmol/L (3-11); BUN 17 mg/dL (7-18); Bilirubin, Total 0.67 mg/dL (0.2-1.0); CO2 24.4 mmol/L (21.0-32.0); CREATININE 1.2 mg/dL (0.70-1.30); Calcium 8.6 mg/dL (8.5-10.1); Chloride 108 mmol/L (98-107); Estimated GFR 68.38 (mL/min/1.73m2); Glucose 99 mg/dL (74-106); Potassium 4.4 mmol/L (3.5-5.1); Sodium 142 mmol/L (136-145); Total Protein 7.3 g/dL (6.4-8.2)
[2024-07-08] MEDS: Omnipaque 350 MG/ML 500 ML BTL-Imaging package IJ (12:04)
[2024-07-08] MEDS: Normal Saline - Diluent 50 ML VIAL IJ (12:05)
--- NOTE | 2024-07-08 14:39 | ED.GENADUL_ITS ---
Discharge Plan Disposition Patient Disposition: Home Condition: Stable Discharge Details Clinical Impression: Sinusitis, Diplopia Primary Care Provider: Moi Arrington ED Provider: Shonna Palacios Home Meds and New Rx's Prescriptions: New amoxicillin-pot clavulanate 875-125 mg tablet 1 tab PO BID Qty: 14 0RF methylprednisolone [Medrol (Richard[facility])] 4 mg tablets,dose pack See Rx Instructions .ROUTE .COMPLEX Qty: 21 0RF Rx Instructions: for 6 days Discharge Instructions Instructions: Double Vision (DC), Sinusitis, Adult ED Additional Instructions: take antibiotic and medrol as prescribed with persistent symptoms>3 days, worsening pain, fever, please return earlier should you have new or worsening complaints if your symptoms persist, you will need an MRI brain with contrast Stand Alone Forms: Work Release Referrals: Moi Arrington, [employer] [Primary Care Provider] - 2 days Discharge Data Discharge Date/Time-TO BE ENTERED AT DEPARTURE: 07/08/24 14:00 HPI General Date/Time Provider Initiated Documentation: 07/08/24 10:55 . HPI Narrative: The patient is a 63-year-old male who presents with a report of diplopia. He has been experiencing double vision since Saturday. He also reports a left- sided headache. The headache is localized to the left side and remains constant until relieved by aspirin. He had recent upper respiratory symptoms several weeks ago and reportedly has been feeling improved in that regard. He does not report any similar symptoms in the past, fever, chills, difficulty swallowing, or changes in strength and sensation distally. There is no associated dizziness or loss of vision. He has been taking aspirin every several hours for the headache. Related Data Home Medications ?Medication ?Instructions ?Recorded ?Confirmed amoxicillin 875 mg-potassium 1 tab PO BID #14 tabs 07/08/24 clavulanate 125 mg tablet methylprednisolone 4 mg tablets in See Rx Instructions PO .COMPLEX 07/08/24 a dose pack (Medrol (Richardson)) #21 dose pk Previous Rx's ?Medication ?Instructions ?Recorded amoxicillin 875 mg-potassium 1 tab PO BID #14 tabs 07/08/24 clavulanate 125 mg tablet methylprednisolone 4 mg tablets in See Rx Instructions PO .COMPLEX 07/08/24 a dose pack (Medrol ([facility]son)) #21 dose pk Allergies Allergy/AdvReac Type Severity Reaction Status Date / Time No Known Allergies Allergy Verified 07/08/24 10:55 General Stated Complaint: EyeProblem JEANNINE: 3 Exam Narrative Exam Narrative: General Appearance: The patient is alert and oriented, able to follow all basic commands, and is in no acute distress. Vital signs: Within normal limits. HEENT: Pupils are equal, round, reactive to light and accommodation. Extraocular muscles are intact on assessment. Pupils are dilated, making it difficult to assess from his exam today. He does have binocular double vision only. Respiratory: Within normal limits. Cardiovascular: Gastrointestinal: Genitourinary: Lymphatic: Back, Musculoskeletal: No visible signs of trauma. No coup-contrecoup injury. Extremities: Strength and sensation are intact to all four extremities. Skin: Warm and dry, no rash. Neurological: The remainder of cranial nerves are intact. Negative [id number], negative heel thrasher, negative pronator drift. He is ambulatory with a steady gait. Psychiatric: Other observations: Course Vital Signs Vital signs: Vital Signs Temperature 36.9 C 07/08/24 10:54 Pulse 73 07/08/24 10:54 Respiratory Rate 16 07/08/24 10:54 Blood Pressure 132/97 H 07/08/24 10:54 Pulse Oximetry 98 07/08/24 10:54 Temperature 36.6 C 07/08/24 13:59 Pulse 65 07/08/24 13:59 Pulse 65 07/08/24 12:46 Respiratory Rate 15 07/08/24 13:59 Blood Pressure 130/94 H 07/08/24 13:59 Blood Pressure Mean 103 07/08/24 12:01 Pulse Oximetry 96 07/08/24 13:59 Pain Level 0 07/08/24 13:59 Lab/Test Results Lab/Test Results: Laboratory Tests Range/Units 07/08/24 11:25 WBC (4.4-10.8) 10^3/uL 8.87 RBC (4.36-5.78) 10^6/uL 5.19 Hgb (13.5-17.5) g/dL 15.6 Hct (40.0-50.0) % 47.4 MCV (80-95) fL 91 MCH (27.0-33.0) pg 30.1 MCHC (32.0-36.0) % 32.9 RDW (11.8-14.1) % 12.5 Plt Count (130-400) 10^3/uL 272 MPV (8.0-11.0) fL 10.3 Immature Gran % % 0.3 Neutrophils % % 61.4 Lymphocytes % % 28.9 Monocytes % % 6.4 Eosinophils % % 2.5 Basophils % % 0.5 Nucleated RBC % (0.0-0.3) % 0.0 Absolute Neutrophils (1.2-6.7) 10^3/uL 5.45 Absolute Lymphocytes (1.2-3.4) 10^3/uL 2.56 Absolute Monocytes (0.1-0.8) 10^3/uL 0.57 Absolute Eosinophils (0.0-0.7) 10^3/uL 0.22 Absolute Basophils (0.0-0.2) 10^3/uL 0.04 Sodium (136-145) mmol/L 142 Potassium (3.5-5.1) mmol/L 4.4 Chloride (98-107) mmol/L 108 H Carbon Dioxide (21.0-32.0) mmol/L 24.4 Anion Gap (3-11) mmol/L 9.6 BUN (7-18) mg/dL 17 Creatinine (0.70-1.30) mg/dL 1.2 Est GFR (CKD-EPI 2020) (mL/min/1.73m2) 68.38 Glucose (74-106) mg/dL 99 Calcium (8.5-10.1) mg/dL 8.6 Total Bilirubin (0.2-1.0) mg/dL 0.67 AST (15-37) U/L 13 L ALT (16-63) U/L 27 Alkaline Phosphatase (46-116) U/L 92 Total Protein (6.4-8.2) g/dL 7.3 Albumin (3.4-5.0) g/dL 4.0 TSH (0.36-3.74) uIU/mL 3.05 Medical Decision Making Visual acuity OD 20/20 OS 20/20, OU unobtainable secondary to diplopia Imaging CTA head and neck shows sphenoid, maxillary and frontal sinusitis on the left. No obvious aneurysm or evidence of space occupying lesion. Initial Assessment: 63-year-old male with diplopia and left-sided headache, recent upper respiratory symptoms, and no history of similar symptoms. Differential Diagnosis: - Sinusitis: Suspected due to left-sided sphenoid, maxillary, and frontal sinusitis identified on CTA. Plan to treat with Medrol and antibiotics. - Aneurysm: No evidence found on CTA. - Space-occupying lesion: No evidence found on CTA. ED Course: - Discussed case with Dr. Roldan, radiologist. - Ordered CTA head and neck. - CTA results: Left-sided sphenoid, maxillary, and frontal sinusitis; no aneurysm or space-occupying lesion. - Placed on Medrol and antibiotics for sinusitis. - Discharged home in the care of his . - Return precautions reviewed and patient expressed understanding. Final Assessment: Patient with diplopia and left-sided headache likely due to sinusitis. Treated with Medrol and antibiotics. No evidence of aneurysm or space-occupying lesion on CTA. Clinical Impression: - Diplopia - Sinusitis Disposition: - Discharge: Home in the care of his . - Follow-Up: Reassess in 48 hours. If symptoms persist, MRI may be necessary. MDM Components Evaluation: - Number of Differential Diagnoses or Management Options: Sinusitis, Aneurysm, Space-occupying lesion. - Amount and Complexity of Data Reviewed: CTA head and neck results, consultation with radiologist. - Risk of Complication and Morbidity or Mortality: Low risk given no evidence of aneurysm or space-occupying lesion; sinusitis being treated with Medrol and antibiotics. Quality:SDOH Health Related Social Needs: Health related social needs details None PFSH All Active Problems (Updated 07/08/24 @ 13:22 by FELIZ Turner) Diplopia (Acute) Sinusitis (Acute) Obesity (BMI 30.0-34.9) (Acute) Personal history of colon cancer (Acute) surgically removed Tubular adenoma of colon (Acute ~07/23/22) Medical History (Updated 07/08/24 @ 13:22 by FELIZ Turner) Hepatic flexure mass Biliary dyskinesia H/O colon cancer, stage III 2010-s/p sigmoid colectomy, radiation and chemotherapy [id number] Surgical History (Updated 08/24/22 @ 15:21 by Keri Johnson RN) History of colonoscopy with polypectomy (~07/23/22) History of cataract surgery bilat History of colonoscopy (~07/2019) EGD - IV Sedation (06/12/16) Colonoscopy - IV Sedation 2010, 2012, 2014, 2016 Colectomy (04/04/11) sigmoidectomy Cholecystectomy (02/13/17) Family History (Updated 07/04/23 @ 17:59 by Merle Hart) Mother , 81 Cancer Heart disease Father , 83 Heart disease Cancer Sister No problems noted. Brother , 59 Alcohol abuse Substance use disorder Daughter No problems noted. Daughter No problems noted. Social History (Updated 07/02/24 @ 09:20 by Vanessa Kaufman) Smoking/Tobacco Use Status: Current every day Tobacco Type: cigarettes Smoking packs per day: 1 Smoking cigarettes per day: 20.0 Tobacco: How many years used: 49 Quit status: not considering quitting Second Hand Exposure: Yes Smoking risk assessment performed?: Yes Alcohol Intake: former Year quit: 1993 Previous attempts at quittin Drug use: Never Substance use type: does not use Counseling given: No Adopted: No Caregiver/Support person: No Foster care: No Household members: significant other Housing: house Number of Children: 2 Communication Needs: None Education Level: high school Do you need help understanding health information?: Never current occupation: retired Pets and animals: Yes (4 dogs) Pets and animals: dog(s) Sexually active: Yes Do you think of yourself as: straight/heterosexual Current gender identity: male What is your relationship status?: living with partner How often do you talk on the phone with friends or family?: three or more times per week How often do you get together with friends or relatives?: once per week How often do you attend gnosticism or christian services?: decline to answer Do you belong to any clubs or organized social groups?: no Panel score (0-1 are the most socially isolated patients): 2 What type of physical activity do you participate in: none Frequency: does not exercise Allyssa/Sabianist: Non presybeterian Special allyssa needs: No Seatbelt use: always Helmet use: No Drive intox or ride w/intox paratransit driver: No Firearms in home: Yes Firearms unloaded and locked: Yes Do you feel safe at home: Yes Do you feel safe in your relationship?: Yes Victim of physical abuse: No Victim of emotional abuse: No Victim of sexual abuse: No Would you like helpful sources: No Additional Social history: unable to assess privately
--- NOTE | 2024-07-09 11:27 | NUR.NOTE ---
[facility] called asking about an MRI report. I accessed chart and determined that there was only a head and neck CTA done. I called them back, left a message for Maria C regarding this. Nursing Note:
== END 2024-07-08 14:00 | disposition home or self-care (01) ==
PROVIDERS: Emergency Provider Physician Assistant; PCP Nurse Practitioner Family
DX: H53.2 Diplopia (principal); J01.00 Acute maxillary sinusitis, unspecified; F17.210 Nicotine dependence, cigarettes, uncomplicated
CPT/HCPCS: 36415; 70496; 70498; 80053; 96374; 99284; 84443; 85025; J0131

== ENCOUNTER 2024-07-27 01:51 | Outpatient (CLI) | payer MEDICAID, SELFPAY ==
--- NOTE | 2024-07-27 09:32 | DI.RAD_ITS ---
Exam(s) XR ABDOMEN FLAT PLATE EXAM: XR ABDOMEN FLAT PLATE CLINICAL HISTORY: Monitoring left calculi,n20.0. TECHNIQUE: 2D digital imaging was performed. COMPARISON: CT CT ABDOMEN PELVIS W from 03/09/2020 CR XR ABDOMEN FLAT PLATE from 07/17/2022 FINDINGS: AP supine view of the abdomen-pelvis Surgical clips in right upper quadrant are again noted as is a circular anastomotic suture line in th e low pelvis, most probably related to prior partial sigmoid resection. Moderate amount of fecal material noted in the colon. With respect to renal calculi, the kidneys are partially obscured by fecal material in the colon. There are no obvious radiopaque calculi seen ove r the kidneys. No obvious calculi seen along the course of the upper left ureter. There is a E subt le calcific density seen over the left side of the mid-lower sacrum more evident than previous, this measuring approximately 5 x 4 mm. Possibly representing a calculus. On the opposite side there is a similar size calcification projected over the lateral aspect of the r ight L4 transverse process, possibly a calculus in the right ureter at this level. IMPRESSION: Possible bilateral ureteral calculi as described above. DATA REPOSITORY: RADIATION DOSE DELIVERED:
== END 2024-07-27 02:11 ==
LOC: DI 01:51
PROVIDERS: PCP Nurse Practitioner Family; Visit Provider Nurse Practitioner Gerontology
DX: N20.0 Calculus of kidney (principal)
CPT/HCPCS: 74018

== ENCOUNTER 2024-08-04 02:04 | Outpatient (CLI) | payer MEDICAID, SELFPAY ==
[2024-08-04 09:07] LABS: Hemoglobin A1C 5.4 % (<5.7)
[2024-08-04 10:14] LABS: Calculated LDL 105 mg/dL (<100); Cholesterol 169 mg/dL (<200); HDL Cholesterol 41 mg/dL (>or=40); Triglyceride 116 mg/dL (<150)
== END 2024-08-04 02:05 | disposition home or self-care (01) ==
LOC: LBO 02:05
PROVIDERS: PCP Nurse Practitioner Family; Visit Provider Nurse Practitioner Family
DX: Z13.1 Encounter for screening for diabetes mellitus (principal); Z13.220 Encounter for screening for lipoid disorders
CPT/HCPCS: 36415; 80061; 83036